=== PATIENT | male | born 1950 | race Caucasian/White ===

== ENCOUNTER 2016-04-04 11:24 | Emergency (ER) | payer MEDICARE, BC ==
[2016-04-04 11:32] VITALS: BP 162/102
[2016-04-04] MEDS ORDERED: DIPHTH,PERTUSS(ACELL),TET VAC 0.5 ML VIAL IM ONE (12:10)
--- NOTE | 2016-04-04 12:16 | ERNOTE ---
Lower Extremity HPI - Narrative Date of Service: 04/04/16 - General Lower Extremities Pain: 1st toe: right Time Seen by Provider: 04/04/16 11:53 Source: patient Exam Limitations: no limitations - Immun/Allergies/Home Medications Immunizations: IMMUNIZATION HX History of Influenza Vaccine Yes Hx Pneumococcal Vaccination Yes Allergies/Adverse Reactions: Allergies Allergy/AdvReac Type Severity Reaction Status Date / Time ciprofloxacin [From Cipro] Allergy Mild Hives Verified 04/04/16 11:32 ciprofloxacin HCl Allergy Mild Hives Verified 04/04/16 11:32 [From Cipro] hydrocodone bitartrate Allergy Mild Hives Verified 04/04/16 11:32 [From Vicodin] oxycodone [Oxycodone] AdvReac Mild Vomiting Verified 04/04/16 11:32 Home Medications: HOME MEDICATIONS Cetirizine HCl [Zyrtec] 10 mg PO DAILY PRN 11/22/13 [Last Taken 03/03/15] Furosemide [Lasix] 40 mg PO DAILY 11/22/13 [Last Taken 03/03/15] Gabapentin [Neurontin] 600 mg PO TID 11/22/13 [Last Taken 03/03/15] Irbesartan [Avapro] 300 mg PO DAILY 11/22/13 [Last Taken 03/03/15] Omeprazole [Prilosec] 20 mg PO DAILY 11/22/13 [Last Taken 03/03/15] Potassium Chloride [Klor-Con 10] 10 meq PO DAILY 11/22/13 [Last Taken 03/03/15] Montelukast Sodium [Singulair] 10 mg PO DAILY 01/20/15 [Last Taken 03/03/15] Aspirin 81 mg PO DAILY 04/04/16 [Last Taken Unknown] Budesonide/Formoterol Fumarate [Symbicort 160-4.5 Mcg Inhaler] 2 puff IH BID [Last Taken Unknown] Cholecalciferol (Vitamin D3) [Vitamin D3] 5,000 unit PO DAILY 04/04/16 [Last Taken Unknown] Meloxicam [Mobic] 15 mg PO DAILY 04/04/16 [Last Taken Unknown] Verapamil HCl [Verapamil ER] 240 mg PO DAILY 04/04/16 [Last Taken Unknown] - History of Present Illness Narrative: Pt. comes in with c/o R great toe nail being tore off of his toe while moving furniture an hour ago. Pt. denies any pain or injury to the toe itself just the nail. Pt. denies wearing shoes at the time of incident but states that he had a small amount of blood that stopped prior to arrival. Review of Systems - Review of Systems Constitutional: Present: no symptoms reported. Absent: recent illness, fever, chills, weakness, fatigue, malaise EYE: Present: no symptoms reported ENT: Present: no symptoms reported Respiratory: Present: no symptoms reported. Absent: shortness of breath, cough , wheezing Cardiology: Present: no symptoms reported. Absent: chest pain, palpitations, edema Genitourinary: Present: no symptoms reported Musculoskeletal: Absent: back pain, joint pain Skin: Present: change in hair/nails - nail great toe tore off Neurological: Present: no symptoms reported. Absent: headache, dizziness/light- headedness, numbness, tingling All Other Systems: All systems neg except as marked - Patient's Past Medical History Patient History - Medical: Arthritis, GERD, Obesity, Osteoarthritis Patient History - Cardiac/Respiratory: Asthma, Hypertension Patient History - Cancer: No Hx of Cancer Patient History - Surgical Procedures: Total Knee Replacement, Other - Family History Mother Family History - Medical: , Diabetes Type 2 Family History - Cardiac/Respiratory: No pertinent hx Father Family History - Medical: Family History - Cardiac/Respiratory: Coronary Heart Disease, Myocardial Infarction Brother Family History - Medical: Diabetes Type 2 Family History - Cardiac/Respiratory: No pertinent hx Sister Family History - Medical: Diabetes Type 2 Family History - Cardiac/Respiratory: No pertinent hx - Social History Living Situations: spouse Smoking Status: Never smoker Have you smoked in the past 12 months: No Do you dip or chew tobacco: No Alcohol Use: occasionally Drug Use: none Physical Exam - Physical Exam General Appearance: Present: wd/wn, alert, no apparent distress Eye Exam: Normal inspection: bilateral, PERRL: bilateral, EOMI: bilateral Ears, Nose, Throat: Present: normal ENT inspection, hearing grossly normal, normal pharynx Neck: Present: normal inspection, nontender. Absent: lymphadenopathy (R), lymphadenopathy (L) Respiratory: Present: no respiratory distress, normal breath sounds, no accessory muscle use, chest nontender, lungs clear Cardiovascular/Chest: Present: regular rate, rhythm, no murmur, normal peripheral pulses Gastrointestinal/Abdominal: Present: normal bowel sounds, nontender, nondistended, soft, no organomegaly Back Exam: Present: normal inspection, normal range of motion, no CVA tenderness , no vertebral tenderness Extremity Exam: Present: no edema, normal range of motion, other - tenderness with lifting of the nail no bony tenderness granulation tissue nose to nail bed. base of nail still attached Neurological Exam: Present: alert, oriented, normal mood/affect, no motor/ sensory deficits, explosive technician II-XII nml as tested, normal cerebellar test Skin Exam: Present: normal color, warm/dry. Absent: pallor, skin rash ED Progress - Vital Signs Patient's Vital Signs:: I have reviewed the patient's vital signs. Vital Signs: Vital Signs 04/04/16 11:28 Temperature 36.3 C L Pulse Rate 73 Respiratory 14 Rate Blood Pressure 162/102 O2 Sat by Pulse 95 Oximetry - Progress/Reassessment Chief Complaint: Foot Injury/Pain Departure Clinical Impression: Nail avulsion of toe Qualifiers: Encounter type: initial encounter Qualified Code(s): S91.209A - Unspecified open wound of unspecified toe(s) with damage to nail, initial encounter - Departure Disposition: Home self-care Condition: Good Instructions: Nail Avulsion Additional Instructions: Please follow up with entry level mechanical engineer in 7-10 days Referrals: Tyshawn Arteaga MD [Primary Care Provider] - Savannah Rai DPM [Staff Physician] -
== END 2016-04-04 12:30 | disposition home or self-care (01) ==
LOC: ER 11:24
DX: S91.201A Unspecified open wound of right great toe with damage to nail, initial encounter (principal); W22.8XXA Striking against or struck by other objects, initial encounter; Y93.89 Activity, other specified; Z96.659 Presence of unspecified artificial knee joint; K21.9 Gastro-esophageal reflux disease without esophagitis; I10 Essential (primary) hypertension

== ENCOUNTER 2016-12-11 10:15 | Inpatient (IN) | payer MEDICARE, BC ==
--- NOTE | 2016-12-11 11:06 | ERNOTE ---
Dyspnea - Date Date of Service: 12/11/16 - General Presenting Symptoms: shortness of breath Time Seen by Provider: 12/11/16 10:40 Source: patient Exam Limitations: no limitations - Immun/Allergies/Home Medications Immunizations: IMMUNIZATION HX Immunizations Up to Date Yes History of Influenza Vaccine Yes Hx Pneumococcal Vaccination Yes Allergies/Adverse Reactions: Allergies ciprofloxacin [From Cipro] Allergy (Mild, Verified 12/11/16 10:30) Hives ciprofloxacin HCl [From Cipro] Allergy (Mild, Verified 12/11/16 10:30) Hives hydrocodone bitartrate [From Vicodin] Allergy (Mild, Verified 12/11/16 10:30) Hives oxycodone [Oxycodone] Adverse Reaction (Mild, Verified 12/11/16 10:30) Vomiting Home Medications: HOME MEDICATIONS Cetirizine HCl [Zyrtec] 10 mg PO DAILY PRN 11/22/13 [Last Taken 03/03/15] Furosemide [Lasix] 40 mg PO DAILY 11/22/13 [Last Taken 03/03/15] Gabapentin [Neurontin] 600 mg PO TID 11/22/13 [Last Taken 03/03/15] Irbesartan [Avapro] 300 mg PO DAILY 11/22/13 [Last Taken 03/03/15] Potassium Chloride [Klor-Con 10] 10 meq PO DAILY 11/22/13 [Last Taken 03/03/15] Montelukast Sodium [Singulair] 10 mg PO DAILY 01/20/15 [Last Taken 03/03/15] Aspirin 81 mg PO DAILY 04/04/16 [Last Taken Unknown] Budesonide/Formoterol Fumarate [Symbicort 160-4.5 Mcg Inhaler] 2 puff IH BID [Last Taken Unknown] Cholecalciferol (Vitamin D3) [Vitamin D3] 5,000 unit PO DAILY 04/04/16 [Last Taken Unknown] Meloxicam [Mobic] 15 mg PO DAILY 04/04/16 [Last Taken Unknown] Verapamil HCl [Verapamil ER] 240 mg PO DAILY 04/04/16 [Last Taken Unknown] Arformoterol Tartrate [Brovana] 15 mcg IH BID 12/11/16 [Last Taken Unknown] Sulfamethoxazole/Trimethoprim [Bactrim 400-80 mg Tablet] 1 each PO DAILY [Last Taken Unknown] - History of Present Illness Narrative: pt had a urinary procedure on 11/22/16. He has had intermittent sweats and this am he had shaking chills per . He has a dry cough and a h/o asthma. He is complaining of dyspnea although he has no wheezes, extra sounds, no decreased breath sounds Date (Duration): 12/11/16 Time (Timing): 09:40 Severity: moderate Initiating event: Reports: upper resp illness Frequency of episodes: Reports: other - one prior episode of sepsis Modifying Factors - (Improves): Reports: activity, nothing Modifying Factors (Worsens): Reports: activity, nothing Associated Symptoms-Dyspnea: Reports: denies symptoms Review of Systems - Review of Systems Constitutional: Present: no symptoms reported EYE: Present: no symptoms reported ENT: Present: no symptoms reported Respiratory: Present: no symptoms reported Cardiology: Present: no symptoms reported Gastrointestinal/Abdominal: Present: no symptoms reported, constipation Genitourinary: Present: no symptoms reported Musculoskeletal: Present: no symptoms reported Skin: Present: no symptoms reported Neurological: Present: no symptoms reported Endocrine: Present: no symptoms reported Hematologic/Lymphatic: Present: no symptoms reported Psych: Present: no symptoms reported All Other Systems: All systems neg except as marked - Patient's Past Medical History Patient History - Medical: Arthritis, GERD, Obesity, Osteoarthritis Patient History - Cardiac/Respiratory: Asthma Patient History - Cancer: No Hx of Cancer Patient History - Surgical Procedures: Total Knee Replacement, Other Patient History - Other: None - Family History Mother Family History - Medical: , Diabetes Type 2 Family History - Cardiac/Respiratory: No pertinent hx Father Family History - Medical: Family History - Cardiac/Respiratory: Coronary Heart Disease, Myocardial Infarction Brother Family History - Medical: Diabetes Type 2 Family History - Cardiac/Respiratory: No pertinent hx Sister Family History - Medical: Diabetes Type 2 Family History - Cardiac/Respiratory: No pertinent hx - Social History Living Situations: spouse Abuse History: No History of abuse Psych History: No pertinent hx Smoking Status: Never smoker Have you smoked in the past 12 months: No Do you dip or chew tobacco: No Alcohol Use: occasionally Drug Use: none - Immunizations Immunizations Up to Date: Yes Hx Pneumococcal Vaccination: Yes History of Influenza Vaccine: Yes Physical Exam - Physical Exam General Appearance: Present: alert, no apparent distress Head Exam: Present: normal inspection Eye Exam: Normal inspection: bilateral Ears, Nose, Throat: Present: normal ENT inspection Neck: Present: normal inspection, nontender Respiratory: Present: no respiratory distress, normal breath sounds. Absent: rhonchi Cardiovascular/Chest: Present: regular rate, rhythm, no murmur Gastrointestinal/Abdominal: Present: normal bowel sounds, nontender Male Genitals Exam: Present: normal genitalia Back Exam: Present: normal inspection Extremity Exam: Present: normal inspection Skin Exam: Present: normal color Lymphatic Exam: Present: no adenopathy ED Progress - Results and Orders Patient's Lab Results:: I have reviewed the patient's lab results. - Vital Signs Patient's Vital Signs:: I have reviewed the patient's vital signs. Vital Signs: Vital Signs 12/11/16 12/11/16 10:25 10:46 Temperature 37.5 C 37.5 C Pulse Rate 93 90 Respiratory 14 11 L Rate Blood Pressure 140/80 128/57 O2 Sat by Pulse 98 99 Oximetry - CT/Ultrasound CT/Ultrasound Narrative: Pt had CT chest with contrast that was negative for PE, mass or infiltrate. Ct abdomen/pelvis: no internal organ injury. Possible pyelonephritis, no obstruction or stone. - Progress/Reassessment Chief Complaint: Dyspnea Plan - Plan Plan: spoke with Jessica COUCH/ Dr. Rincon who requested that urology be contacted. Spoke with Dr. De Oliveira who requested IV antibiotics and a catheter placement. Contacted hospitalist who agreed to admit the pt. Orders placed for admission Departure Clinical Impression: Pyelonephritis, acute - Departure Disposition: [facility] Condition: Good
[2016-12-11 11:19] LABS: Hematocrit 37.5 % (42.0-52.0); Hemoglobin 12.6 gm/dL (13.5-18.0); Mean Cell Volume 86.4 fl (78-100); Mean Corpuscular Hgb Conc 33.6 g/dl (32-36); Mean Platelet Volume 9.5 fl (6.0-9.5); Neutrophil # 16.2 K/mm3 (1.3-6.0); Neutrophil % 84.6 % (42-75.0); Platelet Count 406 K/mm3 (150-450); Red Blood Count 4.34 M/mm3 (4.7-6.0); White Blood Count 19.2 K/mm3 (4.0-10.5)
[2016-12-11 11:20] LABS: Total Cells Counted 100
[2016-12-11 11:37] LABS: Albumin * 3.1 gm/dl (3.4-5.0); Anion Gap 15.6 mmol/L (6.8-13.8); BUN/Creatinine Ratio 19.5 (9.0-21.6); Bilirubin, Total 0.7 mg/dL (0.0-1.1); Ca. Corrected For Albumin 8.9 mg/dL (8.4-10.2); Calcium * 8.5 mg/dL (7.9-10.9); Carbon Dioxide 22.9 mmol/L (24-32.6); Potassium 4.5 mmol/L (3.4-4.6); Total Protein 7.6 gm/dL (6.2-8.2)
[2016-12-11 11:48] LABS: Band 1 % (0-2.0); Lymphocyte 7 % (20-51); Monocyte 9 % (0-9); Neutrophil 83 % (42-75); Neutrophil # 15.9 K/mm3 (1.3-6.0); Platelet Estimate Normal (NORMAL); RBC Morphology Normal (NORMAL)
[2016-12-11 11:59] LABS: Urine Appearance Clear; Urine Bilirubin Negative (NEGATIVE); Urine Color Yellow
[2016-12-11 12:00] LABS: Urine Blood 5 /ul (NEGATIVE); Urine Ketone Negative (NEGATIVE); Urine Nitrite Negative (NEGATIVE); Urine Protein Negative (NEGATIVE); Urine Urobilinogen Normal (NORMAL); Urine pH 5.5 pH (5.0-7.0)
[2016-12-11 12:02] LABS: Urine Bacteria None Seen; Urine RBC 0-5 /hpf (0-5); Urine WBC 0-5 /hpf (0-5)
[2016-12-11] MEDS: ENOXAPARIN SODIUM 40 MG/0.4 ML SYRG SC SCH (16:27)
--- NOTE | 2016-12-11 16:27 | HP ---
<Anahi Galvan - Last Filed: 12/11/16 17:04> Chief Complaint - Chief Complaint Date of Service: 12/11/16 Time of Service: 16:27 Chief Complaint: dyspnea, night sweats, chills. History of Present Illness: Rik is a 66 year old male patient of Dr. Fontanez with a PMH of asthma, asthma , GERD, enlarged prostate with LUTS, morbid obesity, SHEEBA on CPAP, postinfective bulbous urethral stricture and Restrictive lung disease who presented to the ER with c/o dyspnea, night sweats and chills. Patient had a Electro Uroflowmetry complex, irrigation of bladder and fill and pull with Dr. Thomas on . ER eval revealed cbc significant for wbc 19.2 with 84.6 neutrophils, h/h 12.6/37.5. d-dimer 0.98. BUN/Cr 25/1.28, lactic acid 1.4. CT of the chest negative for PE. CT of abdomen/pelvis showed cystitis and pyelonephritis. previously on bactrim outpatient. Dr. farley notified of admission and recommend iv rocephin and elliott catheter. Last echo 05/16/13 show ef 65-70% with borderline LVH, RV mildly dilated, diastolic dysfunction and trace TR. Patient to be admitted for pyelonephritis and dyspnea. - Patient's Past Medical History Patient History - Medical: Arthritis, GERD, Obesity, Osteoarthritis Patient History - Cardiac/Respiratory: Asthma, CHF - chronic diastolic Patient History - Cancer: No Hx of Cancer Patient History - Surgical Procedures: Appendectomy, Colonoscopy, Total Knee Replacement, Other, Urology Patient History - Other: None - Family History Mother Family History - Medical: , Diabetes Type 2 Family History - Cardiac/Respiratory: No pertinent hx Family History - Cancer: No pertinent family hx Father Family History - Medical: Family History - Cardiac/Respiratory: Coronary Heart Disease, Myocardial Infarction Family History - Cancer: No pertinent family hx Brother Family History - Medical: Diabetes Type 2 Family History - Cardiac/Respiratory: No pertinent hx Family History - Cancer: No pertinent family hx Sister Family History - Medical: Diabetes Type 2 Family History - Cardiac/Respiratory: No pertinent hx Family History - Cancer: No pertinent family hx - Social History Living Situations: spouse Abuse History: No History of abuse Psych History: No pertinent hx Smoking Status: Never smoker Have you smoked in the past 12 months: No Do you dip or chew tobacco: No Alcohol Use: occasionally Drug Use: none - Immunizations Immunizations Up to Date: Yes Hx Pneumococcal Vaccination: Yes History of Influenza Vaccine: Yes Review Of Systems (GEN) - Review of Systems Generalized/Overall Review: Present: Chills, Diaphoresis. Absent: Fever EENTM: Present: No Symptoms Reported Respiratory: Present: Shortness of Breath Cardiac: Present: No Symptoms Reported Abdominal: Present: No Symptoms Reported Genitourinary: Present: No Symptoms Reported Musculoskeletal: Present: No Symptoms Reported Neurological: Present: No Symptoms Reported Skin: Present: No Symptoms Reported Endocrine: Present: No Symptoms Reported Misc: All systems neg except as marked Immunizations: IMMUNIZATION HX Immunizations Up to Date Yes History of Influenza Vaccine Yes Hx Pneumococcal Vaccination Yes Allergies/Adverse Reactions: Allergies Allergy/AdvReac Type Severity Reaction Status Date / Time ciprofloxacin [From Cipro] Allergy Mild Hives Verified 12/11/16 16:14 ciprofloxacin HCl Allergy Mild Hives Verified 12/11/16 16:14 [From Cipro] hydrocodone bitartrate Allergy Mild Hives Verified 12/11/16 16:14 [From Vicodin] oxycodone [Oxycodone] AdvReac Mild Vomiting Verified 12/11/16 16:14 Home Medications: HOME MEDICATIONS Cetirizine HCl [Zyrtec] 10 mg PO DAILY PRN 11/22/13 [Last Taken 03/03/15] Furosemide [Lasix] 40 mg PO DAILY 11/22/13 [Last Taken 03/03/15] Gabapentin [Neurontin] 600 mg PO TID 11/22/13 [Last Taken 03/03/15] Irbesartan [Avapro] 300 mg PO DAILY 11/22/13 [Last Taken 03/03/15] Potassium Chloride [Klor-Con 10] 10 meq PO DAILY 11/22/13 [Last Taken 03/03/15] Montelukast Sodium [Singulair] 10 mg PO DAILY 01/20/15 [Last Taken 03/03/15] Aspirin 81 mg PO DAILY 04/04/16 [Last Taken Unknown] Cholecalciferol (Vitamin D3) [Vitamin D3] 5,000 unit PO DAILY 04/04/16 [Last Taken Unknown] Meloxicam [Mobic] 15 mg PO DAILY 04/04/16 [Last Taken Unknown] Verapamil HCl [Verapamil ER] 240 mg PO DAILY 04/04/16 [Last Taken Unknown] Arformoterol Tartrate [Brovana] 15 mcg IH BID 12/11/16 [Last Taken Unknown] Budesonide [Pulmicort Respules] 2 ml IH BID 12/11/16 [Last Taken Unknown] Sulfamethoxazole/Trimethoprim [Bactrim 400-80 mg Tablet] 1 each PO DAILY [Last Taken Unknown] Exam - Exam Vital Signs: Vital Signs - Last Taken Temp 37.1 C 12/11/16 15:32 Pulse 72 12/11/16 15:32 Resp 18 12/11/16 15:32 BP 120/65 12/11/16 15:32 Pulse Ox 96 12/11/16 15:32 Constitutional: Present: Alert, Oriented x3, Cooperative, No distress, Morbidly obese ENT Exam: Present: hearing grossly normal Eye Exam: bilateral eye: normal inspection Neck: Present: supple Back Exam: Present: no CVA tenderness Breasts: Present: Exam deferred Respiratory: Present: normal breath sounds, no respiratory distress, no accessory muscle use Cardiovascular/Chest: Present: normal peripheral pulses, regular rate, rhythm, no murmur Peripheral Pulses: carotid (R): 2+, carotid (L): 2+, dorsalis-pedis (R): 2+, dorsalis-pedis (L): 2+, radial (R): 2+, radial (L): 2+ Abdomen: Present: Normal bowel sounds, soft, nontender, obese. Absent: CVA tenderness /Rectal: Present: Exam deferred Extremity: Present: non-tender, lower extremity edema - 2+ pitting Skin Exam: Present: warm/dry, no cyanosis, pallor Diagnostic Studies: Laboratory Results WBC 19.2 K/mm3 (4.0-10.5) H 12/11/16 11:11 RBC 4.34 M/mm3 (4.7-6.0) L 12/11/16 11:11 Hgb 12.6 gm/dL (13.5-18.0) L 12/11/16 11:11 Hct 37.5 % (42.0-52.0) L 12/11/16 11:11 MCV 86.4 fl (78-100) 12/11/16 11:11 MCH 29.0 pg (27-31) 12/11/16 11:11 MCHC 33.6 g/dl (32-36) 12/11/16 11:11 RDW 13.0 % (11.5-14.0) 12/11/16 11:11 Plt Count 406 K/mm3 (150-450) 12/11/16 11:11 MPV 9.5 fl (6.0-9.5) 12/11/16 11:11 Immature Gran % (Auto) 0.50 % (0.001-0.429) H 12/11/16 11:11 Immature Gran # (Auto) 0.10 K/mm3 (0.000-0.0310) H 12/11/16 11:11 Neutrophils % 84.6 % (42-75.0) H 12/11/16 11:11 Neutrophils % (Manual) 83 % (42-75) H 12/11/16 11:11 Band Neuts % (Manual) 1 % (0-2.0) 12/11/16 11:11 Lymphocytes % 4.4 % (20-51) L 12/11/16 11:11 Lymphocytes % (Manual) 7 % (20-51) L 12/11/16 11:11 Monocytes % 9.3 % (0.0-9) H 12/11/16 11:11 Monocytes % (Manual) 9 % (0-9) 12/11/16 11:11 Eosinophils % 0.7 % (0.0-3.0) 12/11/16 11:11 Basophils % 0.5 % (0.0-1.0) 12/11/16 11:11 Nucleated RBC % 0.0 k/mm3 (0-1) 12/11/16 11:11 Neutrophils # 16.2 K/mm3 (1.3-6.0) H 12/11/16 11:11 Neutrophils # (Manual) 15.9 K/mm3 (1.3-6.0) H 12/11/16 11:11 Lymphocytes # 0.9 k/mm3 (1.5-3.5) L 12/11/16 11:11 Lymphocytes # (Manual) 1.3 k/mm3 (1.5-3.5) L 12/11/16 11:11 Monocytes # 1.8 k/mm3 (0.0-1.0) H 12/11/16 11:11 Monocytes # (Manual) 1.7 k/mm3 (0.0-1.0) H 12/11/16 11:11 Eosinophils # 0.1 k/mm3 (0.0-0.7) 12/11/16 11:11 Absolute Basophils 0.1 k/mm3 (0.0-0.1) 12/11/16 11:11 Platelet Estimate Normal (NORMAL) 12/11/16 11:11 RBC Morphology Normal (NORMAL) 12/11/16 11:11 D-Dimer 0.98 mg/L (0.19-0.49) H 12/11/16 11:11 Sodium 136 mmol/L (132-142) 12/11/16 11:11 Plasma Sodium 136 mmol/L (130-142) 12/11/16 11:11 Potassium 4.5 mmol/L (3.4-4.6) 12/11/16 11:11 Chloride 102 mmol/L (97-106) 12/11/16 11:11 Carbon Dioxide 22.9 mmol/L (24-32.6) L 12/11/16 11:11 Anion Gap 15.6 mmol/L (6.8-13.8) H 12/11/16 11:11 BUN 25 mg/dL (6-23) H 12/11/16 11:11 Creatinine 1.28 mg/dL (0.4-1.4) 12/11/16 11:11 Est GFR (Non-Af Amer) 60 mL/min (60-130) D 12/11/16 11:11 BUN/Creatinine Ratio 19.5 (9.0-21.6) 12/11/16 11:11 Random Glucose 122 mg/dL (70-110) H 12/11/16 11:11 Lactic Acid, Venous 1.4 mmol/L (0.4-1.9) 12/11/16 11:45 Calcium 8.5 mg/dL (7.9-10.9) 12/11/16 11:11 Calcium Adj for Albumin 8.9 mg/dL (8.4-10.2) 12/11/16 11:11 Total Bilirubin 0.7 mg/dL (0.0-1.1) 12/11/16 11:11 AST 20 U/L (0-48) 12/11/16 11:11 ALT 47 U/L (19-67) 12/11/16 11:11 Alkaline Phosphatase 55 U/L (50-170) 12/11/16 11:11 Total Protein 7.6 gm/dL (6.2-8.2) 12/11/16 11:11 Albumin 3.1 gm/dl (3.4-5.0) L 12/11/16 11:11 Urine Color Yellow 12/11/16 11:43 Urine Appearance Clear 12/11/16 11:43 Urine pH 5.5 pH (5.0-7.0) 12/11/16 11:43 Ur Specific [place] 1.010 SP.GR. (1.005-1.030) 12/11/16 11:43 Urine Protein Negative mg/dL (NEGATIVE) 12/11/16 11:43 Urine Glucose (UA) Negative mg/dL (NEGATIVE) 12/11/16 11:43 Urine Ketones Negative mg/dL (NEGATIVE) 12/11/16 11:43 Urine Blood 5 /ul (NEGATIVE) H 12/11/16 11:43 Urine Nitrate Negative (NEGATIVE) 12/11/16 11:43 Urine Bilirubin Negative mg/dl (NEGATIVE) 12/11/16 11:43 Urine Urobilinogen Normal EU/dl (NORMAL) 12/11/16 11:43 Ur Leukocyte Esterase Negative /ul (NEGATIVE) 12/11/16 11:43 Urine RBC 0-5 /hpf (0-5) 12/11/16 11:43 Urine WBC 0-5 /hpf (0-5) 12/11/16 11:43 Ur Epithelial Cells 0-5 /hpf (0-5) 12/11/16 11:43 Urine Bacteria None seen (NONE) 12/11/16 11:43 Urine Culture Comments No culture indicated 12/11/16 11:43 Assessment/Plan - Narrative Narrative: Rik is a 66 year old male who presented to the ER with c/o dyspnea, chills and night sweats. Pyelonephritis / leukocytosis - Rocephin 1 gm IV daily - Day #1 - NS at 100 ml / hr - send urine for culture - 2 blood cultures pending - WBC elevated at 19 upon admission - recheck labs in am. - No CVA tenderness Dyspnea - CTA of the chest neg for PE/pneumonia/pleural effusion - upon admission to floor, states he feels better with no intervention - ? anxiety ? GERD - pepcid iv to see if this help with symptoms SHEEBA - continue cpap while admitted Code status: Full code VTE: coronanox GI Proph: pepcid - Assessment/Plan (1) Dyspnea Problem: Acute QualifierTitle: Dyspnea type: unspecified Qualified Code(s): R06.00 - Dyspnea, unspecified (2) Morbid obesity with BMI of 45.0-49.9, adult Problem: Chronic (3) SHEEBA on CPAP Problem: Chronic (4) Restrictive lung disease Problem: Chronic (5) Enlarged prostate with lower urinary tract symptoms (LUTS) Problem: Chronic (6) Pyelonephritis, acute Problem: Acute (7) Leukocytosis Problem: Acute QualifierTitle: Qualified Code(s): D72.829 - Elevated white blood cell count, unspecified (8) Asthma Problem: Chronic QualifierTitle: Asthma severity: mild intermittent Asthma complication type: uncomplicated Qualified Code(s): J45.20 - Mild intermittent asthma, uncomplicated (9) GERD (gastroesophageal reflux disease) Problem: Chronic QualifierTitle: Esophagitis presence: esophagitis presence not specified Qualified Code(s): K21.9 - Gastro-esophageal reflux disease without esophagitis (10) Hypertension Problem: Chronic QualifierTitle: Hypertension type: essential hypertension Qualified Code( s): I10 - Essential (primary) hypertension <Jevon Butler - Last Filed: 12/12/16 07:22> History of Present Illness: The approach was discussed with Dr. Farley, the treating surgeon, and his plan was implemented. At the time of our exam, the patient was feeling better. I personally directed the care of our nurse practitioner hospitalist. Immunizations: IMMUNIZATION HX Immunizations Up to Date Yes History of Influenza Vaccine Yes Hx Pneumococcal Vaccination Yes Exam - Exam Vital Signs: Vital Signs - Last Taken Temp 37.9 C H 12/12/16 02:43 Pulse 57 L 12/12/16 04:45 Resp 18 12/12/16 04:45 BP 150/59 12/12/16 02:43 Pulse Ox 90 12/12/16 04:45 Diagnostic Studies: Laboratory Results WBC 19.2 K/mm3 (4.0-10.5) H 12/11/16 11:11 RBC 4.34 M/mm3 (4.7-6.0) L 12/11/16 11:11 Hgb 12.6 gm/dL (13.5-18.0) L 12/11/16 11:11 Hct 37.5 % (42.0-52.0) L 12/11/16 11:11 MCV 86.4 fl (78-100) 12/11/16 11:11 MCH 29.0 pg (27-31) 12/11/16 11:11 MCHC 33.6 g/dl (32-36) 12/11/16 11:11 RDW 13.0 % (11.5-14.0) 12/11/16 11:11 Plt Count 406 K/mm3 (150-450) 12/11/16 11:11 MPV 9.5 fl (6.0-9.5) 12/11/16 11:11 Immature Gran % (Auto) 0.50 % (0.001-0.429) H 12/11/16 11:11 Immature Gran # (Auto) 0.10 K/mm3 (0.000-0.0310) H 12/11/16 11:11 Neutrophils % 84.6 % (42-75.0) H 12/11/16 11:11 Neutrophils % (Manual) 83 % (42-75) H 12/11/16 11:11 Band Neuts % (Manual) 1 % (0-2.0) 12/11/16 11:11 Lymphocytes % 4.4 % (20-51) L 12/11/16 11:11 Lymphocytes % (Manual) 7 % (20-51) L 12/11/16 11:11 Monocytes % 9.3 % (0.0-9) H 12/11/16 11:11 Monocytes % (Manual) 9 % (0-9) 12/11/16 11:11 Eosinophils % 0.7 % (0.0-3.0) 12/11/16 11:11 Basophils % 0.5 % (0.0-1.0) 12/11/16 11:11 Nucleated RBC % 0.0 k/mm3 (0-1) 12/11/16 11:11 Neutrophils # 16.2 K/mm3 (1.3-6.0) H 12/11/16 11:11 Neutrophils # (Manual) 15.9 K/mm3 (1.3-6.0) H 12/11/16 11:11 Lymphocytes # 0.9 k/mm3 (1.5-3.5) L 12/11/16 11:11 Lymphocytes # (Manual) 1.3 k/mm3 (1.5-3.5) L 12/11/16 11:11 Monocytes # 1.8 k/mm3 (0.0-1.0) H 12/11/16 11:11 Monocytes # (Manual) 1.7 k/mm3 (0.0-1.0) H 12/11/16 11:11 Eosinophils # 0.1 k/mm3 (0.0-0.7) 12/11/16 11:11 Absolute Basophils 0.1 k/mm3 (0.0-0.1) 12/11/16 11:11 Platelet Estimate Normal (NORMAL) 12/11/16 11:11 RBC Morphology Normal (NORMAL) 12/11/16 11:11 D-Dimer 0.98 mg/L (0.19-0.49) H 12/11/16 11:11 Sodium 136 mmol/L (132-142) 12/11/16 11:11 Plasma Sodium 136 mmol/L (130-142) 12/11/16 11:11 Potassium 4.5 mmol/L (3.4-4.6) 12/11/16 11:11 Chloride 102 mmol/L (97-106) 12/11/16 11:11 Carbon Dioxide 22.9 mmol/L (24-32.6) L 12/11/16 11:11 Anion Gap 15.6 mmol/L (6.8-13.8) H 12/11/16 11:11 BUN 25 mg/dL (6-23) H 12/11/16 11:11 Creatinine 1.28 mg/dL (0.4-1.4) 12/11/16 11:11 Est GFR (Non-Af Amer) 60 mL/min (60-130) D 12/11/16 11:11 BUN/Creatinine Ratio 19.5 (9.0-21.6) 12/11/16 11:11 Random Glucose 122 mg/dL (70-110) H 12/11/16 11:11 Lactic Acid, Venous 1.4 mmol/L (0.4-1.9) 12/11/16 11:45 Calcium 8.5 mg/dL (7.9-10.9) 12/11/16 11:11 Calcium Adj for Albumin 8.9 mg/dL (8.4-10.2) 12/11/16 11:11 Total Bilirubin 0.7 mg/dL (0.0-1.1) 12/11/16 11:11 AST 20 U/L (0-48) 12/11/16 11:11 ALT 47 U/L (19-67) 12/11/16 11:11 Alkaline Phosphatase 55 U/L (50-170) 12/11/16 11:11 B-Natriuretic Peptide 53 pg/mL (5-350) 12/11/16 11:45 Total Protein 7.6 gm/dL (6.2-8.2) 12/11/16 11:11 Albumin 3.1 gm/dl (3.4-5.0) L 12/11/16 11:11 Procalcitonin 0.26 ng/mL (0.05-0.50) 12/11/16 11:45 Urine Color Yellow 12/11/16 11:43 Urine Appearance Clear 12/11/16 11:43 Urine pH 5.5 pH (5.0-7.0) 12/11/16 11:43 Ur Specific [place] 1.010 SP.GR. (1.005-1.030) 12/11/16 11:43 Urine Protein Negative mg/dL (NEGATIVE) 12/11/16 11:43 Urine Glucose (UA) Negative mg/dL (NEGATIVE) 12/11/16 11:43 Urine Ketones Negative mg/dL (NEGATIVE) 12/11/16 11:43 Urine Blood 5 /ul (NEGATIVE) H 12/11/16 11:43 Urine Nitrate Negative (NEGATIVE) 12/11/16 11:43 Urine Bilirubin Negative mg/dl (NEGATIVE) 12/11/16 11:43 Urine Urobilinogen Normal EU/dl (NORMAL) 12/11/16 11:43 Ur Leukocyte Esterase Negative /ul (NEGATIVE) 12/11/16 11:43 Urine RBC 0-5 /hpf (0-5) 12/11/16 11:43 Urine WBC 0-5 /hpf (0-5) 12/11/16 11:43 Ur Epithelial Cells 0-5 /hpf (0-5) 12/11/16 11:43 Urine Bacteria None seen (NONE) 12/11/16 11:43 Urine Culture Comments No culture indicated 12/11/16 11:43
[2016-12-11] MEDS ORDERED: LORazepam 2 MG/ML DISP.SYRIN IV ONE (17:00)
[2016-12-11] MEDS: NORMAL SALINE 1,000 ML IV PRN (17:32)
[2016-12-11] MEDS: FAMOTIDINE 20 MG in DEXTROSE 5 % IN WATER 100 ML IV SCH ×2 (17:45)
[2016-12-11] MEDS ORDERED: LORATADINE 10 MG TABLET PO PRN (19:00)
[2016-12-11] MEDS: GABAPENTIN 600 MG TABLET PO SCH (19:13)
[2016-12-11] MEDS: FORMOTEROL FUMARATE 20 MCG/2 ML VIAL IH SCH (19:23)
[2016-12-11] MEDS: BUDESONIDE 0.5 MG/2 ML VIAL.NEB IH SCH (19:24)
[2016-12-12] MEDS: ACETAMINOPHEN 325 MG TABLET PO PRN (02:25)
[2016-12-12] MEDS: FAMOTIDINE 20 MG in DEXTROSE 5 % IN WATER 100 ML IV SCH ×4 (04:15→17:13)
[2016-12-12] MEDS: NORMAL SALINE 1,000 ML IV PRN (07:31)
[2016-12-12] MEDS ORDERED: VANCOMYCIN HCL 1.25 GM in DEXTROSE 5 % IN WATER 250 ML IV ONE ×2 (08:18)
[2016-12-12 08:27] LABS: Hematocrit 36.5 % (42.0-52.0); Hemoglobin 12.1 gm/dL (13.5-18.0); Mean Cell Volume 88.2 fl (78-100); Mean Corpuscular Hemoglobin 29.2 pg (27-31); Mean Corpuscular Hgb Conc 33.2 g/dl (32-36); Mean Platelet Volume 9.3 fl (6.0-9.5); Neutrophil # 9.4 K/mm3 (1.3-6.0); Neutrophil % 70.7 % (42-75.0); Platelet Count 392 K/mm3 (150-450); Red Blood Count 4.14 M/mm3 (4.7-6.0); Red Cell Distribution Width 13.2 % (11.5-14.0); White Blood Count 13.2 K/mm3 (4.0-10.5)
[2016-12-12 08:35] LABS: Anion Gap 10.4 mmol/L (6.8-13.8); Calcium * 8.4 mg/dL (7.9-10.9); Carbon Dioxide 27.6 mmol/L (24-32.6); Estimated Creat Clear 51.6
--- NOTE | 2016-12-12 08:36 | PN ---
Subjective - Date and Time Seen Date: 12/12/16 Time: 08:33 Subjective Narrative: c/o night sweats and chills. no fevers. no cp,dyspnea. overall feeling better. Objective - Review of Systems Generalized/Overall Review: Reports: Chills, Diaphoresis, Fatigue. Denies: Fever EENTM: Reports: No Symptoms Reported Respiratory: Reports: No Symptoms Reported Cardiac: Reports: No Symptoms Reported Abdominal: Reports: No Symptoms Reported Genitourinary Symptoms: Reports: No Symptoms Reported Musculoskeletal Complaints: Reports: No Symptoms Reported Neurological: Reports: No Symptoms Reported Skin: Reports: No Symptoms Reported Endocrine: Reports: No Symptoms Reported Misc: All systems neg except as marked - Vitals Vitals: Last Vital Signs Temp 36.6 C 12/12/16 06:00 Pulse 52 L 12/12/16 06:00 Resp 18 12/12/16 06:00 BP 122/65 12/12/16 06:00 Pulse Ox 94 12/12/16 06:00 - Abnormal Lab Findings Abnormal Lab Findings: Abnormal Lab Results 12/12/16 Range/Units 08:22 WBC 13.2 H D (4.0-10.5) K/mm3 RBC 4.14 L (4.7-6.0) M/mm3 Hgb 12.1 L (13.5-18.0) gm/dL Hct 36.5 L (42.0-52.0) % Immature Gran % (Auto) 0.50 H (0.001-0.429) % Immature Gran # (Auto) 0.07 H (0.000-0.0310) K/mm3 Lymphocytes % 14.5 L (20-51) % Monocytes % 11.6 H (0.0-9) % Neutrophils # 9.4 H (1.3-6.0) K/mm3 Monocytes # 1.5 H (0.0-1.0) k/mm3 - Exam Constitutional: Present: Alert, Oriented x3, Cooperative, No distress, Morbidly obese ENT Exam: Present: hearing grossly normal Neck: Present: full range of motion, supple Breasts: Present: Exam deferred Respiratory: Present: normal breath sounds, no respiratory distress Cardiovascular/Chest: Present: normal peripheral pulses, regular rate, rhythm Abdomen: Present: soft, nontender, obese /Rectal: Present: Exam deferred Extremity: Present: non-tender, lower extremity edema - 2+ pitting Skin Exam: Present: warm/dry, no cyanosis, pallor Cauti Physician Documentation - Urinary Catheter Management Uretheral (Elliott) Urethral Indwelling: Yes Reason for Continuing Indwelling Catheter: Other - obstruction; per Dr. Haji recommendation. Date of Insertion: 12/11/16 Time of Insertion: 15:00 Assessment/Plan Plan Narrative: Rik is a 66 year old male who presented to the ER with c/o dyspnea, chills and night sweats. Pyelonephritis / leukocytosis - Rocephin 1 gm IV daily - Day #2 - NS at 100 ml / hr - send urine for culture - prelim culture growing gram negative bacilli - 2 blood cultures pending - WBC elevated at 19.2 upon admission - wbc this am (12/12/16) decreased to 13.2 - No CVA tenderness - Spoke with Dr. Haji (urology) - recommend continue with elliott catheter and cont antibiotic treatment Dyspnea - CTA of the chest neg for PE/pneumonia/pleural effusion - upon admission to floor, states he feels better with no intervention - ? anxiety ? GERD - protonix SHEEBA - continue cpap while admitted Code status: Full code VTE: lovenox GI Proph: pepcid - Problems/Diagnosis (1) Dyspnea Problem: Acute Qualifiers: Dyspnea type: unspecified Qualified Code(s): R06.00 - Dyspnea, unspecified (2) Morbid obesity with BMI of 45.0-49.9, adult Problem: Chronic (3) SHEEBA on CPAP Problem: Chronic (4) Restrictive lung disease Problem: Chronic (5) Enlarged prostate with lower urinary tract symptoms (LUTS) Problem: Chronic (6) Pyelonephritis, acute Problem: Acute (7) Leukocytosis Problem: Acute (8) Asthma Problem: Chronic Qualifiers: Asthma severity: mild intermittent Asthma complication type: uncomplicated Qualified Code(s): J45.20 - Mild intermittent asthma, uncomplicated (9) GERD (gastroesophageal reflux disease) Problem: Chronic Qualifiers: Esophagitis presence: esophagitis presence not specified Qualified Code(s) : K21.9 - Gastro-esophageal reflux disease without esophagitis (10) Hypertension Problem: Chronic Qualifiers: Hypertension type: essential hypertension Qualified Code(s): I10 - Essential (primary) hypertension
[2016-12-12] MEDS: FORMOTEROL FUMARATE 20 MCG/2 ML VIAL IH SCH ×2 (08:43→18:14)
[2016-12-12] MEDS: BUDESONIDE 0.5 MG/2 ML VIAL.NEB IH SCH ×2 (08:45→18:15)
[2016-12-12] MEDS ORDERED: MONTELUKAST SODIUM 10 MG TABLET PO SCH (09:00)
[2016-12-12] MEDS ORDERED: FLU VACC QS2017-18(6MOS UP)/PF 60 MCG/0.5 ML SYRINGE IM ONE (09:00)
[2016-12-12] MEDS: LOSARTAN POTASSIUM 50 MG TABLET PO SCH (09:09)
[2016-12-12] MEDS: VERAPAMIL HCL 240 MG TABLET.SA PO SCH (09:09)
[2016-12-12] MEDS: SACCHAROMYCES BOULARDII 250 MG CAPSULE PO SCH ×2 (09:09→20:55)
[2016-12-12] MEDS: ASPIRIN 81 MG TAB.CHEW PO SCH (09:09)
[2016-12-12] MEDS: POTASSIUM CHLORIDE 10 MEQ TABLET.SA PO SCH (09:09)
[2016-12-12] MEDS: GABAPENTIN 600 MG TABLET PO SCH ×3 (09:10→17:10)
[2016-12-12] MEDS: CHOLECALCIFEROL 5,000 UNIT TABLET PO SCH (09:10)
[2016-12-12] MEDS: MELOXICAM 15 MG TABLET PO SCH (09:10)
[2016-12-12] MEDS: FUROSEMIDE 40 MG TABLET PO SCH (09:10)
[2016-12-12] MEDS: ENOXAPARIN SODIUM 40 MG/0.4 ML SYRG SC SCH (15:36)
[2016-12-12] MEDS: MONTELUKAST SODIUM 10 MG TABLET PO SCH (20:56)
[2016-12-13] MEDS: NORMAL SALINE 1,000 ML IV PRN ×2 (00:41→13:16)
[2016-12-13] MEDS: FAMOTIDINE 20 MG in DEXTROSE 5 % IN WATER 100 ML IV SCH ×4 (04:13→16:55)
[2016-12-13 05:56] LABS: Hematocrit 35.3 % (42.0-52.0); Hemoglobin 11.7 gm/dL (13.5-18.0); Mean Cell Volume 88.5 fl (78-100); Mean Corpuscular Hemoglobin 29.3 pg (27-31); Mean Corpuscular Hgb Conc 33.1 g/dl (32-36); Mean Platelet Volume 10.1 fl (6.0-9.5); Platelet Count 394 K/mm3 (150-450); Red Blood Count 3.99 M/mm3 (4.7-6.0); White Blood Count 10.9 K/mm3 (4.0-10.5)
[2016-12-13 06:04] LABS: Total Cells Counted 100
[2016-12-13 06:09] LABS: Anion Gap 13.8 mmol/L (6.8-13.8); Calcium * 8.3 mg/dL (7.9-10.9); Carbon Dioxide 24.4 mmol/L (24-32.6); Estimated Creat Clear 60.7; Potassium 4.2 mmol/L (3.4-4.6)
[2016-12-13] MEDS: FORMOTEROL FUMARATE 20 MCG/2 ML VIAL IH SCH ×2 (06:16→18:16)
[2016-12-13] MEDS: BUDESONIDE 0.5 MG/2 ML VIAL.NEB IH SCH ×2 (06:16→18:16)
[2016-12-13 06:27] LABS: BUN/Creatinine Ratio 14.8 (9.0-21.6)
[2016-12-13 06:32] LABS: Eosinophil 2 % (0-3); Immature Granulocyte 1 (0-1); Lymphocyte 22 % (20-51); Monocyte 11 % (0-9); Neutrophil 64 % (42-75)
[2016-12-13 06:33] LABS: Platelet Estimate Normal (NORMAL); RBC Morphology Normal (NORMAL)
[2016-12-13] MEDS: ASPIRIN 81 MG TAB.CHEW PO SCH (09:06)
[2016-12-13] MEDS: LOSARTAN POTASSIUM 50 MG TABLET PO SCH (09:07)
[2016-12-13] MEDS: GABAPENTIN 600 MG TABLET PO SCH ×3 (09:07→16:55)
[2016-12-13] MEDS: SACCHAROMYCES BOULARDII 250 MG CAPSULE PO SCH ×2 (09:07→22:22)
[2016-12-13] MEDS: POTASSIUM CHLORIDE 10 MEQ TABLET.SA PO SCH (09:07)
[2016-12-13] MEDS: MELOXICAM 15 MG TABLET PO SCH (09:07)
[2016-12-13] MEDS: VERAPAMIL HCL 240 MG TABLET.SA PO SCH (09:07)
[2016-12-13] MEDS: FUROSEMIDE 40 MG TABLET PO SCH (09:07)
[2016-12-13] MEDS: CHOLECALCIFEROL 5,000 UNIT TABLET PO SCH (09:08)
--- NOTE | 2016-12-13 10:43 | PN ---
Subjective - Date and Time Seen Date: 12/13/16 Time: 10:38 Subjective Narrative: Patient is afebrile today. Tmax yesterday was 37.9. Objective - Review of Systems Generalized/Overall Review: Reports: Fever. Denies: Chills EENTM: Reports: No Symptoms Reported Respiratory: Denies: Cough, Shortness of Breath Cardiac: Denies: Chest Pain, Palpitations Abdominal: Denies: Nausea, Vomiting Genitourinary Symptoms: Denies: Urgency, Frequency - Vitals Vitals: Last Vital Signs Temp 36.8 C 12/13/16 08:39 Pulse 65 12/13/16 09:07 Resp 16 12/13/16 08:39 BP 138/63 12/13/16 09:07 Pulse Ox 96 12/13/16 08:39 - Abnormal Lab Findings Abnormal Lab Findings: Abnormal Lab Results 12/13/16 12/13/16 Range/Units 05:10 05:10 WBC 10.9 H (4.0-10.5) K/mm3 RBC 3.99 L (4.7-6.0) M/mm3 Hgb 11.7 L (13.5-18.0) gm/dL Hct 35.3 L (42.0-52.0) % MPV 10.1 H (6.0-9.5) fl Monocytes % (Manual) 11 H (0-9) % Neutrophils # (Manual) 7.0 H (1.3-6.0) K/mm3 Monocytes # (Manual) 1.2 H (0.0-1.0) k/mm3 Chloride 108 H (97-106) mmol/L Random Glucose 119 H (70-110) mg/dL - Exam Constitutional: Present: Alert, Oriented x3, Cooperative ENT Exam: Present: hearing grossly normal Neck: Present: supple Breasts: Present: Exam deferred Respiratory: Present: normal breath sounds, No rales, No wheezing Cardiovascular/Chest: Present: regular rate, rhythm, no JVD, no murmur Abdomen: Present: Normal bowel sounds, soft, nontender, obese Extremity: Present: no pedal edema, no calf tenderness Cauti Physician Documentation - Urinary Catheter Management Uretheral (Starr) Urethral Indwelling: Yes Date of Insertion: 12/11/16 Time of Insertion: 15:00 Assessment/Plan - Problems/Diagnosis (1) Pyelonephritis, acute Problem: Acute Narrative: UCS showing E.Coli. Patient is allergic to Cipro and likely levaquin. The patient says that Dr. Miles will be seeing him tomorrow in the hospital. Will ikely idschgarge him tomorrow with oral Cefuroxime per sensitivity. (2) Enlarged prostate with lower urinary tract symptoms (LUTS) Problem: Chronic (3) Morbid obesity with BMI of 45.0-49.9, adult Problem: Chronic (4) SHEEBA on CPAP Problem: Chronic (5) Leukocytosis Problem: Acute Narrative: down to 10.9. (6) Asthma Problem: Chronic Qualifiers: Asthma severity: mild intermittent Asthma complication type: uncomplicated Qualified Code(s): J45.20 - Mild intermittent asthma, uncomplicated (7) GERD (gastroesophageal reflux disease) Problem: Chronic Qualifiers: Esophagitis presence: esophagitis presence not specified Qualified Code(s) : K21.9 - Gastro-esophageal reflux disease without esophagitis (8) Hypertension Problem: Chronic Qualifiers: Hypertension type: essential hypertension Qualified Code(s): I10 - Essential (primary) hypertension
[2016-12-13] MEDS: ACETAMINOPHEN 325 MG TABLET PO PRN (13:13)
[2016-12-13] MEDS: ENOXAPARIN SODIUM 40 MG/0.4 ML SYRG SC SCH (16:55)
[2016-12-13] MEDS: MONTELUKAST SODIUM 10 MG TABLET PO SCH (22:22)
[2016-12-14] MEDS: FAMOTIDINE 20 MG in DEXTROSE 5 % IN WATER 100 ML IV SCH ×2 (03:13)
[2016-12-14] MEDS: NORMAL SALINE 1,000 ML IV PRN (04:46)
[2016-12-14] MEDS: FORMOTEROL FUMARATE 20 MCG/2 ML VIAL IH SCH (06:15)
[2016-12-14] MEDS: BUDESONIDE 0.5 MG/2 ML VIAL.NEB IH SCH (06:15)
[2016-12-14 07:50] LABS: Hematocrit 35.8 % (42.0-52.0); Hemoglobin 11.9 gm/dL (13.5-18.0); Mean Cell Volume 87.5 fl (78-100); Mean Corpuscular Hemoglobin 29.1 pg (27-31); Mean Corpuscular Hgb Conc 33.2 g/dl (32-36); Mean Platelet Volume 9.5 fl (6.0-9.5); Neutrophil # 7.7 K/mm3 (1.3-6.0); Neutrophil % 65.8 % (42-75.0); Platelet Count 393 K/mm3 (150-450); Red Blood Count 4.09 M/mm3 (4.7-6.0); Red Cell Distribution Width 12.9 % (11.5-14.0); White Blood Count 11.7 K/mm3 (4.0-10.5)
[2016-12-14 08:06] LABS: Anion Gap 12.9 mmol/L (6.8-13.8); BUN/Creatinine Ratio 15.3 (9.0-21.6); Calcium * 8.2 mg/dL (7.9-10.9); Carbon Dioxide 25.1 mmol/L (24-32.6); Estimated Creat Clear 66.9
[2016-12-14] MEDS: ASPIRIN 81 MG TAB.CHEW PO SCH (08:30)
[2016-12-14] MEDS: FUROSEMIDE 40 MG TABLET PO SCH (08:30)
[2016-12-14] MEDS: LOSARTAN POTASSIUM 50 MG TABLET PO SCH (08:30)
[2016-12-14] MEDS: POTASSIUM CHLORIDE 10 MEQ TABLET.SA PO SCH (08:30)
[2016-12-14] MEDS: SACCHAROMYCES BOULARDII 250 MG CAPSULE PO SCH (08:30)
[2016-12-14] MEDS: VERAPAMIL HCL 240 MG TABLET.SA PO SCH (08:30)
[2016-12-14] MEDS: MELOXICAM 15 MG TABLET PO SCH (08:31)
[2016-12-14] MEDS: CHOLECALCIFEROL 5,000 UNIT TABLET PO SCH (08:31)
[2016-12-14] MEDS: GABAPENTIN 600 MG TABLET PO SCH ×2 (08:31→13:15)
[2016-12-14] MEDS ORDERED: CEFUROXIME AXETIL 500 MG TABLET PO SCH (10:00)
--- NOTE | 2016-12-14 10:23 | PN ---
Misael Note - Interim Narrative: 12/14/16 10:22 Will discharge patient this afternoon after he sees Dr. Miles. Will leave it up to him if his elliott is coming out. He had a recent proceedure for a urethral stricture. His UCS is grwoing E. Coli snesitive to fluroquinolones but he is allergic to them . Will likely discharge him on Cefuroxime 500 mg PO BID .
[2016-12-14] MEDS ORDERED: LEVOFLOXACIN 500 MG TABLET PO ONE (10:38)
--- NOTE | 2016-12-14 12:51 | DS ---
(1) Pyelonephritis, acute Problem: Acute (2) Enlarged prostate with lower urinary tract symptoms (LUTS) Problem: Chronic (3) Morbid obesity with BMI of 45.0-49.9, adult Problem: Chronic (4) SHEEBA on CPAP Problem: Chronic (5) Leukocytosis Problem: Acute (6) Asthma Problem: Chronic Qualifiers: Asthma severity: mild intermittent Asthma complication type: uncomplicated Qualified Code(s): J45.20 - Mild intermittent asthma, uncomplicated (7) GERD (gastroesophageal reflux disease) Problem: Chronic Qualifiers: Esophagitis presence: esophagitis presence not specified Qualified Code(s) : K21.9 - Gastro-esophageal reflux disease without esophagitis (8) Hypertension Problem: Chronic Qualifiers: Hypertension type: essential hypertension Qualified Code(s): I10 - Essential (primary) hypertension Description of Stay: Rik Lamas, is a 66 year old white male with a PMH of asthma, asthma, GERD , enlarged prostate with LUTS, morbid obesity, SHEEBA on CPAP, postinfective bulbous urethral stricture and Restrictive lung disease who presented to the ER on 12/11/2016 with c/o dyspnea, night sweats and chills. Patient had a Electro Uroflowmetry complex, irrigation of bladder and fill and pull with Dr. Thomas on 11/22/16. ER eval revealed cbc significant for wbc 19.2 with 84.6 neutrophils, h/h 12.6/37.5. d-dimer 0.98. BUN/Cr 25/1.28, lactic acid 1.4. CT of the chest negative for PE. CT of abdomen/pelvis showed cystitis and pyelonephritis. previously on bactrim outpatient. Dr. farley notified of admission and recommend iv rocephin and elliott catheter. Last echo 05/16/13 show ef 65-70% with borderline LVH, RV mildly dilated, diastolic dysfunction and trace TR. Patient to be admitted for pyelonephritis and dyspnea. His urine culture grew E.Coli. His WBC trneded down and he has bee afebrile for the last 24 -[address] Miles saw the patient today and recommended taking the elliott out. He wanted him to try Levaquin and see if he will have a reaction as he is allergic to Cipro. If no reaction , will discharge him on levaquin 500 mg PO qd x 10 days. ADDENDUM: He did not have a reaction with Levaquin. Procedures Performed: none Discharge Disposition: Home self care Disposition: Home self-care Condition: Good Discharge Activity: Activity as tolerated Discharge Diet: Low salt Referrals: Ryan Fontanez MD [Primary Care Provider] - Problem Oriented Discharge Instructions to Patient/Family: Pyelonephritis, Adult, [id number] Additional Patient Instructions (free text): Please make TCM appointment, at discharge, if applicable. Thank you! Rupinder @ [phone]. Follow up with PCP in 1 week with on 12-20-16 @ 11:15am. Prescriptions (Any new or edited meds): Acetaminophen [Tylenol] 650 mg PO Q6H PRN #30 tablet PRN Reason: Fever Levofloxacin [Levaquin] 500 mg PO DAILY #10 tablet Complete Home Medications List: Complete Home Medication List: Cetirizine HCl [Zyrtec] 10 mg PO DAILY PRN 11/22/13 Furosemide [Lasix] 40 mg PO DAILY 11/22/13 Gabapentin [Neurontin] 600 mg PO TID 11/22/13 Irbesartan [Avapro] 300 mg PO DAILY 11/22/13 Potassium Chloride [Klor-Con 10] 10 meq PO DAILY 11/22/13 Montelukast Sodium [Singulair] 10 mg PO DAILY 01/20/15 Aspirin 81 mg PO DAILY 04/04/16 Cholecalciferol (Vitamin D3) [Vitamin D3] 5,000 unit PO DAILY 04/04/16 Meloxicam [Mobic] 15 mg PO DAILY 04/04/16 Verapamil HCl [Verapamil ER] 240 mg PO DAILY 04/04/16 Arformoterol Tartrate [Brovana] 15 mcg IH BID 12/11/16 Budesonide [Pulmicort Respules] 2 ml IH BID 12/11/16 Acetaminophen [Tylenol] 650 mg PO Q6H PRN #30 tablet 12/14/16 Levofloxacin [Levaquin] 500 mg PO DAILY #10 tablet 12/14/16
--- NOTE | 2016-12-14 14:08 | CONS ---
HPI - General Narrative: 66-year-old male discovered to have a proximal inflammatory urethral stricture post dilation with indwelling Starr catheter maintained on Bactrim prophylaxis who was admitted for UTI-like symptomatology and not feeling well. White count was elevated. CT scan revealed possible pyelonephritis bilaterally slight delay in excretion/layering on the right but no obstruction. Blood cultures are negative. White count normalized at the initiation of ceftriaxone. Urine culture grew out fairly resistant Escherichia coli susceptible to quinolones. He has recovered nicely remains with indwelling Starr catheter were like to have it removed. Stated ciprofloxacin has caused a rash in the past, he has taken Levaquin without developing any trouble. Creatinine was normal. Location: Systemic/bladder Duration: Days Severity/Stage: Currently mild symptomatology Associated Sx's: Did have fevers/chills and did not feel well Modifying factors: Much better since catheter was placed and antibiotic administration Quality: Currently painless Past medical history: Nondiabetic, includes proximal stricture as mentioned above Past surgical history: Recent balloon dilation and Starr catheter placement last month of proximal inflammatory urethral stricture Social history: Nonsmoker Family history: Noncontributory Review of systems: General: No current fevers or chills, no more myalgias Lungs: No SOB Heart: No chest pain GI: No diarrhea, no constipation Endocrine: Not diabetic : Patient was voiding well prior to incident, no hematuria, he does not care for the catheter 14 point review of systems otherwise negative, important positives noted. - History of Present Illness Allergies/Adverse Reactions: Allergies ciprofloxacin [From Cipro] Allergy (Mild, Verified 12/11/16 16:14) Hives ciprofloxacin HCl [From Cipro] Allergy (Mild, Verified 12/11/16 16:14) Hives hydrocodone bitartrate [From Vicodin] Allergy (Mild, Verified 12/11/16 16:14) Hives oxycodone [Oxycodone] Adverse Reaction (Mild, Verified 12/11/16 16:14) Vomiting Home Medications: Home Medications Medication Instructions Recorded Last Taken Cetirizine HCl [Zyrtec] 10 mg PO DAILY PRN 11/22/13 03/03/15 Furosemide [Lasix] 40 mg PO DAILY 11/22/13 03/03/15 Gabapentin [Neurontin] 600 mg PO TID 11/22/13 03/03/15 Irbesartan [Avapro] 300 mg PO DAILY 11/22/13 03/03/15 Potassium Chloride [Klor-Con 10] 10 meq PO DAILY 11/22/13 03/03/15 Montelukast Sodium [Singulair] 10 mg PO DAILY 01/20/15 03/03/15 Aspirin 81 mg PO DAILY 04/04/16 Unknown Cholecalciferol (Vitamin D3) 5,000 unit PO DAILY 04/04/16 Unknown [Vitamin D3] Meloxicam [Mobic] 15 mg PO DAILY 04/04/16 Unknown Verapamil HCl [Verapamil ER] 240 mg PO DAILY 04/04/16 Unknown Arformoterol Tartrate [Brovana] 15 mcg IH BID 12/11/16 Unknown Budesonide [Pulmicort Respules] 2 ml IH BID 12/11/16 Unknown - Patient's Past Medical History Patient History - Medical: Arthritis, GERD, Obesity, Osteoarthritis Patient History - Cardiac/Respiratory: Asthma, CHF - chronic diastolic Patient History - Cancer: No Hx of Cancer Patient History - Surgical Procedures: Appendectomy, Colonoscopy, Total Knee Replacement, Other, Urology Patient History - Other: None - Family History Mother Family History - Medical: , Diabetes Type 2 Family History - Cardiac/Respiratory: No pertinent hx Family History - Cancer: No pertinent family hx Father Family History - Medical: Family History - Cardiac/Respiratory: Coronary Heart Disease, Myocardial Infarction Family History - Cancer: No pertinent family hx Brother Family History - Medical: Diabetes Type 2 Family History - Cardiac/Respiratory: No pertinent hx Family History - Cancer: No pertinent family hx Sister Family History - Medical: Diabetes Type 2 Family History - Cardiac/Respiratory: No pertinent hx Family History - Cancer: No pertinent family hx - Social History Living Situations: spouse Abuse History: No History of abuse Psych History: No pertinent hx Smoking Status: Never smoker Have you smoked in the past 12 months: No Do you dip or chew tobacco: No Alcohol Use: occasionally Drug Use: none - Immunizations Immunizations Up to Date: Yes Hx Pneumococcal Vaccination: Yes History of Influenza Vaccine: Yes Procedures ANESTH INJECT-SPIN CANAL (03/07/13) APPLICATION OF SPLINT (06/17/08) DIPHTHERIA TOXOID ADMIN (02/12/11) DRAINAGE OF BLADDER WITH DRAINAGE DEVICE, VIA OPENING (12/11/16) ENDO RECTUM POLYPECTOMY (03/24/05) ENDOSC POLYPECTOMY OF LG INTEST (02/12/14) FASCIOTOMY (10/29/01) INJECT STEROID (03/07/13) KNEE STRUCTURE DIVISION (03/01/01) MEASURE OF ARTERIAL SATURATION, PERIPHERAL, PERC APPROACH (01/20/15) OP RED-INT FIX TIB/FIBUL (05/11/01) OTH CHEST CAGE OSTECTOMY (11/28/13) OTHER REPAIR AND PLASTIC OPER OF TIBIA/FIBULA (03/01/01) REMOV INT FIX-TIB/FIBULA (10/29/01) REPLACEMENT OF LEFT KNEE JOINT WITH SYNTH SUB, OPEN APPROACH (03/04/15) ROTATOR CUFF REPAIR (11/28/13) SPINAL CANAL INJECT NEC (03/07/13) TETANUS TOXOID ADMINIST (02/12/11) VENOUS CATHETERIZATION NEC (11/28/09) Medications - Medications Current Medications: Current Medications Acetaminophen (Tylenol) 650 mg PO Q6H PRN PRN Reason: Fever Stop: 01/10/17 15:47 Last Admin: 12/13/16 13:13 Dose: 650 mg Aspirin (Aspirin Chewable) 81 mg PO DAILY ANA MARÍA Stop: 01/11/17 09:01 Last Admin: 12/14/16 08:30 Dose: 81 mg Budesonide (Pulmicort Respules) 0.5 mg IH BIDRT ANA MARÍA Stop: 01/10/17 19:01 Last Admin: 12/14/16 06:15 Dose: 0.5 mg Cefuroxime Axetil (Ceftin) 500 mg PO BID ANA MARÍA PRN Reason: Protocol Stop: 01/13/17 10:01 Last Admin: 12/14/16 10:51 Dose: Not Given Cholecalciferol (Vitamin D) 5,000 unit PO DAILY ANA MARÍA Stop: 01/11/17 09:01 Last Admin: 12/14/16 08:31 Dose: 5,000 unit Enoxaparin Sodium (Lovenox) 40 mg SC Q24H ANA MARÍA Stop: 01/10/17 16:01 Last Admin: 12/13/16 16:55 Dose: 40 mg Formoterol Fumarate (Perforomist) 20 mcg IH BIDRT ANA MARÍA Stop: 01/10/17 19:01 Last Admin: 12/14/16 06:15 Dose: 20 mcg Furosemide (Lasix) 40 mg PO DAILY ANA MARÍA Stop: 01/11/17 09:01 Last Admin: 12/14/16 08:30 Dose: 40 mg Gabapentin (Neurontin) 600 mg PO TID ANA MARÍA Stop: 01/10/17 18:46 Last Admin: 12/14/16 13:15 Dose: 600 mg Famotidine 20 mg/ Dextrose/ (Water) 102 mls @ 400 mls/hr IV Q12H ANA MARÍA Stop: 01/10/17 16:01 Last Admin: 12/14/16 03:13 Dose: 400 mls/hr Losartan Potassium (Cozaar) 100 mg PO DAILY ANA MARÍA Stop: 01/11/17 09:01 Last Admin: 12/14/16 08:30 Dose: 100 mg Meloxicam (Mobic) 15 mg PO DAILY ANA MARÍA Stop: 01/11/17 09:01 Last Admin: 12/14/16 08:31 Dose: 15 mg Montelukast Sodium (Singulair) 10 mg PO HS ANA MARÍA Stop: 01/11/17 21:01 Last Admin: 12/13/16 22:22 Dose: 10 mg Potassium Chloride (Klor-Con 10) 10 meq PO DAILY ANA MARÍA Stop: 01/11/17 09:01 Last Admin: 12/14/16 08:30 Dose: 10 meq Saccharomyces Boulardii (Florastor) 250 mg PO BID ANA MARÍA Stop: 01/11/17 09:01 Last Admin: 12/14/16 08:30 Dose: 250 mg Verapamil HCl (Calan Sr) 240 mg PO DAILY ANA MARÍA Stop: 01/11/17 09:01 Last Admin: 12/14/16 08:30 Dose: 240 mg Physical Examination - Exam Narrative: General: Nontoxic, no acute distress currently Psych: Alert and oriented HEENT: EOM grossly intact Lungs: Respirations unlabored, clear Abdomen: Morbidly obese otherwise benign, no peritoneal signs Neuro: sensation intact Extremities: Moves all 4 without difficulty Heart: Regular Skin: No obvious rashes Back: No CVA tenderness Genital: Starr catheter in place, urine looks pretty clear Vital Signs: Vital Signs - Last Taken Temp 97.5 F L 12/14/16 11:12 Pulse 68 12/14/16 11:12 Resp 18 12/14/16 11:12 BP 168/79 12/14/16 11:12 Pulse Ox 96 12/14/16 11:12 O2 Oxygen Delivery Method Room Air - Results and Findings: Narrative: #1 history of inflammatory urethral stricture: Sounds like Starr catheter when in okay, I think at this point okay to remove. I will follow him closely for recurrence. He was on Bactrim prophylaxis however particular bacteria ended up being resistant. #2 pyelonephritis/febrile UTI: With white count, fever/chills and CT findings I do think he probably did have some pyelonephritis. Fortunately blood cultures were negative. He turn the corner very rapidly. Organisms susceptible to Levaquin. It would be nice to give him a dose of oral Levaquin while he is inpatient make sure he does not react with his Cipro rash history and if not send him home on 10 days of Levaquin 500 mg daily. Starr catheter can be removed, he does need to void before he leaves. He has an appointment to see me December 20 which she will keep. I will choose a different prophylactic agent at that time. Trouble is I do not have a lot of options with a degree of resistance at the current organism has. May consider methenamine hippurate. If has future trouble we'll likely proceed with formal repeat cystoscopy and retrogrades to make sure nothing else going on above. It is possible his stricture had some degree of colonization which led to the trouble that he had. If unable to void we'll need to replace Starr catheter and he can go home with catheter I will see on December 20 anyway. Lab/Microbiology results last 24 hrs: Abnormal/Pending Laboratory Last 24 HRS 12/14/16 07:45 WBC 11.7 H RBC 4.09 L Hgb 11.9 L Hct 35.8 L Immature Gran # (Auto) 0.05 H Lymphocytes % 18.2 L Monocytes % 11.1 H Eosinophils % 3.9 H Neutrophils # 7.7 H Monocytes # 1.3 H
[2016-12-14 14:37] VITALS: BP 165/76
== END 2016-12-14 15:15 | disposition home or self-care (01) | DRG 690 ==
LOC: ER 10:15 → MS 14:48 → OBSVTOIN 12-12 10:24
PROVIDERS: ADMIT Allergy & Immunology; ATTEND Internal Medicine
PROC: 0T9B70Z Drainage of Bladder with Drainage Device, Via Natural or Artificial Opening (ICD-10-PCS; principal; 2016-12-11)
DX: N10 Acute pyelonephritis (principal); Z68.42 Body mass index [BMI] 45.0-49.9, adult; R06.00 Dyspnea, unspecified; N40.1 Benign prostatic hyperplasia with lower urinary tract symptoms; D72.829 Elevated white blood cell count, unspecified; J45.20 Mild intermittent asthma, uncomplicated; I10 Essential (primary) hypertension; K21.9 Gastro-esophageal reflux disease without esophagitis; E66.01 Morbid (severe) obesity due to excess calories; Z23 Encounter for immunization
CPT/HCPCS: 36415; 51702; 71020; 71275; 74177; 80048; 80053; 81001; 83605; 83880; 84145; 85007; 85025; 85379; 87040; 87077; 87086; 87186; 90686; 93005; 94640; 94660; 96365; 99285; G0008; G0378

== ENCOUNTER 2017-04-12 12:43 | Day surgery (SDC) | payer MEDICARE, BC ==
[~2017-04-12 12:43] MED LIST: CEFTRIAXONE SODIUM IV PRN; DEXTROSE 5% IV PRN; NORMAL SALINE 1,000 ML IV PRN; WATER IV PRN
[2017-04-12] MEDS ORDERED: NORMAL SALINE 1,000 ML IV ONE (13:49)
--- NOTE | 2017-04-12 15:41 | OR ---
Operative Report - Dictated Report Narrative: Location: Main OR Anesthesia: General Surgeon: Dr. Gardiner Preoperative diagnosis: Suspected recurrent urethral stricture Postoperative diagnosis: Same, located bulbar urethra, 1 cm long, 5 Beninese, not terribly dense Procedure: #1 retrograde urethrogram #2 cystoscopy with placement of Super Stiff wire, urethral balloon dilation, placement of 22 Ben[place] Councill catheter, aspiration for culture Indications: 66-year-old male history of prior stricture post dilation with suspected recurrence secondary to dysuria and slow flow seen on uroflow. Above- mentioned procedures indicated to confirm diagnosis potentially treat. Of note he has had prior uroseptic episode with catheter. Description: Consent obtained. Patient brought to the operating room where general endotracheal anesthesia was induced. Placed in the dorsal lithotomy position. Prepped and draped. Timeout taken. Retrograde urethrogram obtained and interpreted by Dr. Dr. Thomas. Distal urethra normal caliber no filling defects no evidence of narrowing. In the proximal urethra there is a narrowing more visible on the oblique view that is pretty pinpoint. Looks to be about 1 cm in length. There is good radiographic pictures of the stricture. Contrast did bypass and he flux proximally past prostatic urethra. No extravasation, no other areas of relative narrowing. Rigid cystoscope introduced navigated proximally. Pictures obtained visually of stricture as well. I would have to estimate around 5 Beninese. Super Stiff wire advanced easily without any resistance all the way to the bladder confirmed fluoroscopically. Urethral balloon dilator was used with normal syringe. The stricture dilated easily with minimal pressure on the syringe indicating probably not very dense. Balloon deflated, wire secured. Scope were introduced navigated all the way to the bladder. Aspiration for culture. Capacity increased looks like he wasn't a bit of retention. Not a lot of debris but there was some. There is some obstructive change. Ureters were normal. Prostate medium with mild bilobar hypertrophy. I would say the stricture is 3-4 cm away from the sphincter based on cystoscopic appearance. Specimen: Aspiration for culture EBL: 1 ml Condition: tolerated procedure Important findings: Proximal tight inflammatory urethral stricture. 1 cm long. Not very dense. Bulbar urethra. Follow-up: I will see him in 2 weeks with a flow/BVI. Catheter will come out Monday. Arranging to have done in [place]. I am making an appointment see Dr. Monreal with pictures and retrograde in case this does recur again. Cipro treatment for 5 days. Nitrofurantoin prophylaxis after that in case bacteria part of the issue but truthfully tissue looks a little scarred in that area.
[2017-04-12 17:01] VITALS: BP 145/73
== END 2017-04-12 12:44 | disposition home or self-care (01) ==
LOC: AMB 12:43
PROVIDERS: ATTEND Urology
PROC: 0T7D8ZZ Dilation of Urethra, Via Natural or Artificial Opening Endoscopic (ICD-10-PCS; principal; 2017-04-12)
DX: E66.01 Morbid (severe) obesity due to excess calories; N35.112 Postinfective bulbous urethral stricture, not elsewhere classified, male; Z68.42 Body mass index [BMI] 45.0-49.9, adult; R39.12 Poor urinary stream; K21.9 Gastro-esophageal reflux disease without esophagitis; N40.1 Benign prostatic hyperplasia with lower urinary tract symptoms

== ENCOUNTER 2019-02-25 08:31 | Inpatient (IN) ==
--- NOTE | 2019-02-13 18:48 | ANES ---
Anesthesia Pre Procedure Eval HOME MEDICATIONS Cetirizine HCl [Zyrtec] 10 mg PO DAILY 11/22/13 [Last Taken 03/03/15] Cholecalciferol (Vitamin D3) [Vitamin D3] 5,000 unit PO DAILY 04/04/16 [Last Taken Unknown] Albuterol Sulfate [Albuterol Sulfate 2.5 MG/3 ML] 2.5 mg IH DAILY PRN 04/10/17 [Last Taken Unknown] Albuterol Sulfate [Ventolin HFA] 2 puff IH QID PRN 04/10/17 [Last Taken Unknown] Aspirin [Aspirin Enteric Coated] 81 mg PO DAILY 04/10/17 [Last Taken Unknown] Budesonide [Pulmicort Respules] 2 ml IH BID 04/12/17 [Last Taken Unknown] arformoterol 15 mcg/2 mL solution for nebulization 15 mcg IH Q12H 12/14/17 [Last Taken Unknown] gabapentin 600 mg tablet 600 mg PO TID #270 tab 04/30/18 [Last Taken Unknown] methocarbamol 500 mg tablet 500 mg PO TID #30 tab 10/31/18 [Last Taken Unknown] irbesartan 300 mg tablet 300 mg PO DAILY #30 tab 01/21/19 [Last Taken Unknown] tramadol 50 mg tablet 50 mg PO QID PRN #56 tab 01/25/19 [Last Taken Unknown] craxbwdd-agknbryym-fqnhnnwae 3.5 mg/mL-10,000 unit/mL-1 % ear solution 4 drp OT TID 10 Days #10 ml 02/07/19 [Last Taken Unknown] Diclofenac Sodium [Voltaren] 2 g TOPICAL TID PRN 02/13/19 [Last Taken Unknown] Furosemide [Lasix] 40 mg PO DAILY 02/13/19 [Last Taken Unknown] Montelukast Sodium [Singulair] 10 mg PO DAILY 02/13/19 [Last Taken Unknown] Potassium Chloride [Klor-Con 10] 10 mg PO DAILY 02/13/19 [Last Taken Unknown] Verapamil HCl [Verapamil ER] 240 mg PO DAILY 02/13/19 [Last Taken Unknown] Allergies/Adverse Reactions: Allergies Allergy/AdvReac Type Severity Reaction Status Date / Time ciprofloxacin HCl Allergy Mild Hives Verified 02/06/19 10:58 [From Cipro] hydrocodone bitartrate Allergy Mild Hives Verified 02/06/19 10:58 [From Vicodin] oxycodone [Oxycodone] AdvReac Mild Vomiting Verified 02/06/19 10:58 - Planned Procedure Planned Procedure: Right Arthroplasty Total Knee Medication List Reviewed:: Yes Allergies Verified: Yes Medical History (Last Reviewed 02/13/19 @ 08:37 by Bailey Sullivan RN) DJD (degenerative joint disease) of knee (Chronic) Onset Date: Unknown Knee pain, right (Acute) Onset Date: Unknown Urge incontinence (Chronic) Onset Date: Unknown Plantar fasciitis (Chronic) Onset Date: ~07/06/12 Pes anserinus tendinitis or bursitis (Chronic) Onset Date: ~05/09/11 Peripheral neuropathy (Chronic) Onset Date: ~04/13/12 Obstructive sleep apnea (Chronic) Onset Date: ~04/11/12 Wears cpap Morbid obesity (Chronic) Onset Date: ~07/05/12 D/W diet and exercise. Will redo phentermine. Low back pain (Chronic) Onset Date: ~05/12/99 Hypertension (Chronic) Onset Date: ~12/07/12 Hemorrhoids (Chronic) Onset Date: ~06/16/05 Dr. Simms- Large external hemorrhoid Headache (Chronic) Onset Date: Unknown GERD (gastroesophageal reflux disease) (Chronic) Onset Date: ~04/13/12 Ganglion (Chronic) Onset Date: ~09/17/88 Colon polyp (Chronic) Onset Date: ~02/12/14 hyperplastic Asthma (Chronic) Onset Date: ~01/07/13 mild persistant Actinic keratoses (Chronic) Onset Date: ~09/24/03 06/28/04. Head Surgical History (Last Updated 02/13/19 @ 08:39 by Bailey Sullivan RN) Rotator cuff injury (Resolved) Onset Date: ~11/28/13 Right rotator cuff repair. Dr. Villanueva: subacromial decompression, excision distal clavicle. History of prostate biopsy (Resolved) Onset Date: ~08/03/10 benign Leg fracture, left (Resolved) Onset Date: ~05/12/01 Dr. Mckeon - ORIF left tibia fracture placed plate in left leg. Hardware removal 10/29/01 H/O steroid therapy (Resolved) Onset Date: ~11/10/10 injection H/O echocardiogram (Resolved) Onset Date: ~12/14/09 Normal left ventricular systolic function and wall motion, trace mitral regurg H/O colonoscopy (Resolved) Onset Date: ~03/24/05 With Biopsy; and 02/12/14. Dr Simms - tubular adenoma. hyperplastic polyp. Severe sigmoid diverticulosis. Recheck in 10 years H/O: knee surgery (Resolved) Onset Date: ~03/01/01 arthroscopic, Left. Dr. Mckeon H/O arthroplasty (Resolved) Onset Date: ~03/04/15 Dr. Desir- Left TKA History of appendectomy (Resolved) Onset Date: ~1970 Family History (Last Reviewed 02/13/19 @ 08:38 by Bailey Sullivan RN) Father , age 84 Myocardial infarction Mother , age 63 Diabetes - Family Anesthesia History Family History:: no untoward family reactions to anesthesia, no familial bleeding tendencies, no family history of clotting disorders, no family history of premature - Airway/Neck/Teeth Within Normal Limits:: Yes Denture Type: Perm crown/bridge Mallampatti Score: 1 Thyromental (T-M) distance: > 6 cm Mandibulo Hyoid distance: > 3 cm - Respiratory Smoking Status: Never smoker Discussed smoking cessation including day of surgery: No Sleep Apnea currently treated: Yes - Cardiovascular Tolerate Activity: Good Heart Sounds: S1 & S2, Regular - Anesthesia Assessment and Plan ASA Class: PS, III Anesthesia Type Plan: Block - Right ultrasound guided adductor canal nerve block for postop analgesia, Spinal
[~2019-02-25 08:31] MED LIST changes: -CEFTRIAXONE SODIUM IV PRN; -DEXTROSE 5% IV PRN; +MORPHINE SULFATE 15 MG TABLET.SA PO PRN; -NORMAL SALINE 1,000 ML IV PRN; +ROPIVACAINE HCL/PF 100 MG, EPINEPHrine 0.2 MG, KETOROLAC TROMETHAMINE 30 MG in NORMAL S... IJ PRN; +TRANEXAMIC ACID 1,000 MG in NORMAL SALINE 100 ML IV PRN; -WATER IV PRN; +ceFAZolin SODIUM 1 GM VIAL IV PRN
[2019-02-25] MEDS ORDERED: OSELTAMIVIR PHOSPHATE 75 MG CAPSULE PO SCH (09:00)
[2019-02-25] MEDS ORDERED: LIDOCAINE HCL 20 ML VIAL ONE (09:17)
[2019-02-25] MEDS ORDERED: BUPIVACAINE HCL/EPINEPHRINE 50 ML VIAL IJ ONE (09:17)
[2019-02-25] MEDS ORDERED: NORMAL SALINE 20 ML VIAL ONE (09:18)
[2019-02-25] MEDS ORDERED: BUPIVACAINE HCL/PF 10 ML VIAL ONE (09:18)
[2019-02-25] MEDS ORDERED: MIDAZOLAM HCL/PF 5 MG/ML VIAL ONE (09:18)
[2019-02-25] MEDS ORDERED: PROPOFOL VIAL IV ONE ×3 (09:18→11:25)
[2019-02-25] MEDS: RINGER'S SOLUTION,LACTATED 1,000 ML IV PRN ×3 (09:19→12:10)
[2019-02-25] MEDS ORDERED: MAG HYDROX/ALUMINUM HYD/SIMETH 30 ML UDC PO PRN (12:10)
[2019-02-25] MEDS ORDERED: ZOLPIDEM TARTRATE 5 MG TABLET PO PRN (12:10)
[2019-02-25] MEDS ORDERED: ACETAMINOPHEN 500 MG TABLET PO PRN (12:10)
[2019-02-25] MEDS ORDERED: DEXTROSE 5%-LACTATED RINGERS 1,000 ML IV PRN (12:10)
[2019-02-25] MEDS ORDERED: MAGNESIUM HYDROXIDE 30 ML UDC PO PRN (12:10)
[2019-02-25] MEDS ORDERED: diphenhydrAMINE HCL 50 MG/ML VIAL IV PRN (12:10)
--- NOTE | 2019-02-25 12:10 | OR ---
Operative Report - Dictated Report Narrative: Date: 02/25/2019 Preoperative diagnosis: Right knee degenerative joint disease. Postoperative diagnosis: Right knee degenerative joint disease. Procedure: Right total knee arthroplasty. Surgeon: Js Desir M.D. Tire Design Engineer: Mike Scanlon PA-C (provided and essential set of skilled, educated hands that assisted with transfer, positioning, prepping, draping, manipulation, retraction, placement of jigs, injection, insertion of implants, irrigation, closure wounds, and dressings all of which could not be performed by the available surgical crew) Anesthesia: Spinal with regional block and local periarticular joint injection. Complications: None Specimens: Bone. Estimated blood loss: Minimal. Tourniquet time: 110 Minutes at 325 millimeters of mercury. Retained implants: Depuy Attune size 6 right lugged cemented posterior stabilized femoral component. Size 6 fixed-bearing cemented tibial platform. 6 by 5 millimeter posterior stabilized cross-linked tibial insert. 38 millimeter medialized patella button. Indications: Mr. Lamas is a 68-year-old gentleman who had longstanding right knee pain and arthrosis. This patient was followed in my clinic for period of time with significant complaints of right knee pain consistent with arthritic changes. He had failed conservative measures including, but not limited to, activity modification, passage of time, medications, and other conservative measures. Patient wished to proceed with surgical treatment. The risks, benefits, and alternatives were discussed in clinic. The risks of , blood clots, bleeding, infection, nerve/tendon blood vessel/ injury, malposition of components, intraoperative fracture, postoperative limited range of motion, persistent pain, failure of components, and need for additional procedures. Patient wished to proceed consent was obtained after answering all questions. Procedure: After marking the correct extremity on the floor, the patient was taken to the operating room. A timeout was performed. IV antibiotics consisting of Ancef were administered prior to the procedure. A regional followed by spinal anesthetic was induced by anesthesia, per my request, on the operative table with all bony prominences well-padded. Starr catheter was placed, and a bump was placed under the operative side buttock. SCDs and CRISTAL hose were utilized on the nonoperative leg. A well-padded tourniquet was applied to the operative thigh. The operative leg was then pre-scrubbed with alcohol, prepped, and draped in a standard sterile fashion. After exsanguinating the extremity with an Esmarch bandage, the tourniquet was inflated. After marking out the anterior knee for standard incision centered over the patella, the skin was incised and dissected down to the joint retinaculum. The joint retinaculum was marked out as well as the horizontal axis of the patella, and a standard medial parapatellar arthrotomy was then made. The most proximal aspect of the quadriceps tendon and the patella tendon insertion were protected from release. A partial synovectomy was performed as well as a resection of the infrapatellar fat pad. The distal femoral fat pad proximal to the trochlea was also resected using cautery. The soft tissues were elevated off the medial asp ect of the proximal tibia using a Small elevator ensuring that we did not transect the medial collateral ligament. Upon initial evaluation range of motion was approximately 0 degrees to 125 degrees of flexion. There were signs of advanced arthrosis in the patellofemoral and medial greater than lateral joint spaces. There were large marginal osteophytes which were removed with a rongeur. The knee was hyperflexed and the patella was tucked laterally. Protecting the surrounding soft tissues with Homans, an entry drill was placed down the femoral canal using Whitesides line for guidance into the entry point. The intramedullary femoral alignment phuc was utilized in order to cut the distal femur in 5 degrees of valgus resecting 10 millimeters of bone. Next the distal femur was sized to a size 6. A posterior referencing guide was utilized to place the distal femoral cutting block in 3 degrees of external rotation. This was pinned into place. The rotation was confirmed both visually and based on anatomic landmarks. The 4 in 1 cutting jig of the appropriate size was utilized in order to make all bony cuts. The angle wing was used to ensure no notching. Retractors were utilized in order to protect surrounding soft tissues. This cut did not result in any excessive notching. We then cut the box centered over the distal femur. This allowed for resection of the anterior and posterior cruciate ligaments. I then turned my attention to the preparation of the tibia. Using an extra medullary tibial alignment phuc, 3 millimeters of bone was resected off the medial articular surface. This was made perpendicular to the mechanical axis of the joint with the alignment phuc centered over the ankle mortise. The alignment phuc was checked and was noted to be parallel to the [facility] anical axis, centered over the medial one third of the tibial tubercle, paralleling the anterior surface of the tibia. We then turned our attention to the remaining meniscus and soft tissues. These were removed while protecting the surrounding ligaments and soft tissues. The marginal osteophytes off the anterior, posterior, medial, lateral aspects of the femur and tibia were removed. The tibia was sized out to a size 6. Next the tibia was drilled and punched in an externally rotated position. Next the trial femur and a series of tibial inserts were utilized in order to allow for full extension and maximal flexion. It was found that a 5 millimeter insert gave the best range of motion and stability at multiple flexion points as well as at full extension there was less than 2 mm of gapping both medially and laterally. There is minimal anterior translation with the knee at 90 degrees of flexion and no signs of being able to dislocate the knee. The patella was then prepared. The initial thickness was 20 millimeters. This was reamed down to 11 millimeters parallel to the anterior surface of the patella. It was sized out to a size 38 medialized patella button. This was then drilled and trialed. Without any medial restraint the patella tracked appropriately and did not sublux or dislocate. At this point, it was felt these were the appropriate sized implants, and all trials were removed. The standard periarticular joint injection consisting of ropivacaine, Toradol, and epinephrine were injected into the periarticular joint tissues. The bony surfaces were thoroughly irrigated with a pulsatile-suction saline irrigation device. A bone plug from the prior resected anterior chamfer cut was placed into the drill hole at the distal femur. The bony surfaces were then dried in preparation for placement of the implants. The cement was vacuum mixed per the transportation operations manager's instructions. The cement was placed on the dry bony surfaces and posterior aspect of the implants. The implants were impacted into place, removing all extruded cement. At this point anesthesia administered tranexamic acid per protocol intravenously. The knee was placed in extension with axial loading with the trial insert while the cement cured. Once the cement cured, all remaining extruded cement was removed. The knee was placed through a range of motion with the trial insert to ensure appropriate range of motion and stability. Final range of motion was approximately 0 to 125 degrees. The knee was again thoroughly irrigated with pulsatile saline lavage. The final polyethylene insert was then impacted into place ensuring no retained soft tissues. The remaining periarticular joint injection was injected. A medium Hemovac drain was placed exiting superior laterally. The knee was then placed over a triangle and the arthrotomy was closed with interrupted #1 Vicryl after thoroughly irrigating the joint. The deep and subcutaneous tissues were closed with interrupted 0 and 3-0 Vicryl respectively. Skin was closed with a running subcutaneous 3-0 Monocryl and Prineo Dermabond dressing. 4 x 4's, Sof-Rol, and a full leg Wilfred wrap were applied. All sponge, needle, blade, and instrument counts were correct prior to closing the wounds. Postoperative condition: The patient was awoken and transferred to the postanesthesia care unit in stable condition. Plan is to be admitted to the inpatient medical/surgical floor postoperatively for 24 hours of IV antibiotics, physical therapy, occupational therapy, and medical comanagement. Patient will be weightbearing as tolerated with range of motion as tolerated. DVT prophylaxis will be with SCDs, CRISTAL hose, and pharmacological anticoagulation. Anticipated hospital stay is approximately 1-3 days.
[2019-02-25] MEDS ORDERED: NON-FORMULARY 1 DOSE DOSE (Albuterol Sulfate [Albuterol Sulfate 2.5 Mg/3 Ml] 2.5 MG) IH PRN (12:12)
[2019-02-25] MEDS ORDERED: ALBUTEROL SULFATE 2.5 MG/0.5 ML VIAL.NEB IH PRN (12:12)
--- NOTE | 2019-02-25 12:32 | ANES ---
Post Anesthesia Discharge - Transfer of Care Transfer of Care handoff given to nurse: Yes - Discharge from PACU Discharge from PACU when meets criteria: Yes
--- NOTE | 2019-02-25 12:38 | ANES ---
Anesthesia Procedure Note Procedure Note: ANESTHESIA PROCEDURE NOTE Date of procedure: 02/25/2019. Time of procedure: 50. Performed by: Aaron Carey CRNA Patient Coordinator Front Desk: Any Kahn RN . Preprocedure diagnosis: Right knee DJD. Post procedure diagnosis: Same. Procedure: Ultrasound-guided right adductor canal block Indications: Postoperative analgesia. Findings: Patient brought to operating room #2 and given a spinal anesthetic. Patient's right inner thigh was prepped with ChloraPrep. Ultrasound was utilized to identify the saphenous nerve in the right adductor canal. A 20- gauge 4 inch regional block needle was advanced under ultrasound guidance until tip of needle was placed just anterior to saphenous nerve. 30 mL of 0.25% Marcaine with epinephrine 1 200,000 was injected with adequate spread of local anesthesia noted around the nerve. Regional block needle was removed intact. EBL: Minimal. Fluids: N/A. Specimen: N/A. Post procedure condition: The patient tolerated the procedure well. No complications were noted. Thank you for this consultation Aaron Carey CRNA
[2019-02-25] MEDS: KETOROLAC TROMETHAMINE 15 MG/ML VIAL IV SCH ×2 (13:11→17:14)
--- NOTE | 2019-02-25 13:14 | ANES ---
Post Anesthesia Assessment - Vital Signs Vitals: Last Vital Signs Temp 36.3 C 02/25/19 12:52 Pulse 56 L 02/25/19 12:52 Resp 14 02/25/19 12:52 BP 124/58 02/25/19 12:52 Pulse Ox 99 02/25/19 12:52 Airway Patency: Normal - Mental Status Level Of Consciousness: Awake - Pain Level Pain Score: 0 - N/V Assessment Nausea/Vomiting Presence: None Dehydration:: No
[2019-02-25] MEDS: GABAPENTIN 600 MG TABLET PO SCH ×2 (13:51→17:13)
[2019-02-25] MEDS: METHOCARBAMOL 500 MG TABLET PO SCH ×2 (13:51→17:13)
[2019-02-25] MEDS: OSELTAMIVIR PHOSPHATE 75 MG CAPSULE PO SCH (13:51)
[2019-02-25] MEDS: ceFAZolin SODIUM 1 GM in DEXTROSE 5 % IN WATER 50 ML IV SCH ×4 (14:19→21:07)
[2019-02-25] MEDS: MORPHINE SULFATE 10 MG/0.5 ML SYRINGE PO PRN ×4 (15:10→22:40)
[2019-02-25] MEDS: FORMOTEROL FUMARATE 20 MCG/2 ML VIAL IH SCH (18:25)
[2019-02-25] MEDS: BUDESONIDE 0.5 MG/2 ML VIAL.NEB IH SCH (18:27)
[2019-02-25] MEDS: MORPHINE SULFATE 15 MG TABLET.SA PO SCH (21:06)
[2019-02-25] MEDS: SENNOSIDES/DOCUSATE SODIUM 1 TAB TABLET PO SCH (21:07)
[2019-02-26] MEDS: KETOROLAC TROMETHAMINE 15 MG/ML VIAL IV SCH ×4 (00:38→19:03)
[2019-02-26] MEDS: MORPHINE SULFATE 10 MG/0.5 ML SYRINGE PO PRN ×10 (00:40→22:33)
[2019-02-26] MEDS: ceFAZolin SODIUM 1 GM in DEXTROSE 5 % IN WATER 50 ML IV SCH ×2 (03:23)
[2019-02-26] MEDS: FORMOTEROL FUMARATE 20 MCG/2 ML VIAL IH SCH ×2 (06:01→18:16)
[2019-02-26] MEDS: BUDESONIDE 0.5 MG/2 ML VIAL.NEB IH SCH ×2 (06:02→18:16)
[2019-02-26 06:21] LABS: Hematocrit 37.5 % (42.0-52.0); Hemoglobin 12.6 gm/dL (13.5-18.0); Mean Cell Volume 89.9 fl (78-100); Mean Corpuscular Hemoglobin 30.2 pg (27-31); Mean Corpuscular Hgb Conc 33.6 g/dl (32-36); Platelet Count 287 K/mm3 (150-450); Red Blood Count 4.17 M/mm3 (4.7-6.0); Red Cell Distribution Width 13.7 % (11.5-14.0); White Blood Count 17.3 K/mm3 (4.0-10.5)
[2019-02-26 06:23] LABS: Anion Gap 14.2 mmol/L (6.8-13.8); Carbon Dioxide 24.1 mmol/L (24-32.6); Estimated Creat Clear 62.8; Potassium 4.3 mmol/L (3.4-4.6)
[2019-02-26] MEDS: LOSARTAN POTASSIUM 50 MG TABLET PO SCH (09:20)
[2019-02-26] MEDS: METHOCARBAMOL 500 MG TABLET PO SCH ×3 (09:20→18:03)
[2019-02-26] MEDS: MORPHINE SULFATE 15 MG TABLET.SA PO SCH ×2 (09:20→17:41)
[2019-02-26] MEDS: LORATADINE 10 MG TABLET PO SCH (09:21)
[2019-02-26] MEDS: VERAPAMIL HCL 240 MG TABLET.SA PO SCH (09:21)
[2019-02-26] MEDS: GABAPENTIN 600 MG TABLET PO SCH ×3 (09:21→18:03)
[2019-02-26] MEDS: OSELTAMIVIR PHOSPHATE 75 MG CAPSULE PO SCH (09:21)
[2019-02-26] MEDS: CHOLECALCIFEROL 5,000 UNIT TABLET PO SCH (09:21)
[2019-02-26] MEDS: MONTELUKAST SODIUM 10 MG TABLET PO SCH (09:21)
[2019-02-26] MEDS: FUROSEMIDE 40 MG TABLET PO SCH (09:22)
[2019-02-26] MEDS: POTASSIUM CHLORIDE 10 MEQ TABLET.SA PO SCH (09:22)
[2019-02-26] MEDS: ONDANSETRON HCL/PF 2 MG/ML VIAL IV PRN ×2 (10:12→14:38)
[2019-02-26] MEDS: ENOXAPARIN SODIUM 40 MG/0.4 ML SYRG SC SCH (11:26)
--- NOTE | 2019-02-26 16:52 | PN ---
Subjective - Date and Time Seen Date: 02/26/19 Time: 16:47 Subjective Narrative: Progress note on Rik Lamas. I stop by it 7:45 in the morning postop day 1 patient reports he was in quite a bit of discomfort. He had not gotten up with therapy yet. He stated that he does not remember his left knee being the sore right after surgery. At this time is not having any nausea or vomiting. Had not walked the halls at this time. I did go back and check on Rik at 4:30 in the afternoon he was able to walk to the door in the bathroom a few times but had not been able to walk the halls yet. He states he still feels that he does not have significant pain control. He has started having some nausea and did institute some Zofran for this has not had any vomiting. Objective Objective Narrative: Initially at the morning rounds his bandages were clean dry intact. His drain was intact. Calf supple. He is neurovascular intact with plantar flexion dorsiflexion of the ankle. He was up in a chair reported pain did not appear to be in severe pain. He answered questions appropriately On recheck at 4:30 in the afternoon his dressings have been removed his incisions well approximated his drain is out no active bleeding or drainage noted. Calf supple neurovascular intact with plantar flexion dorsiflexion ankle - Vitals Vitals: Last Vital Signs Temp 37.2 C 02/26/19 14:10 Pulse 66 02/26/19 14:10 Resp 16 02/26/19 14:10 BP 177/83 H 02/26/19 14:10 Pulse Ox 98 02/26/19 14:10 - Abnormal Lab Findings Abnormal Lab Findings: Abnormal Lab Results 02/26/19 02/26/19 Range/Units 06:13 06:13 WBC 17.3 H (4.0-10.5) K/mm3 RBC 4.17 L (4.7-6.0) M/mm3 Hgb 12.6 L (13.5-18.0) gm/dL Hct 37.5 L (42.0-52.0) % Anion Gap 14.2 H (6.8-13.8) mmol/L Random Glucose 119 H (70-110) mg/dL - Exam Constitutional: Present: Alert, Oriented x3, Cooperative, No distress Cauti Physician Documentation - Urinary Catheter Management Urethral (Starr) Date of Insertion: 02/25/19 Time of Insertion: 10:42 Date of Removal: 02/26/19 Time of Removal: 05:20 Assessment/Plan - Problems/Diagnosis (1) Status post total right knee replacement Problem: Acute Narrative: Patient has had poor pain tolerance at this point time. He has been slow to progress with physical therapy. I did modify his MS Contin to 15 mg every 8 hours. If this continues to be inadequate we can bump him up to a 30 mg dose. He is getting Zofran for the nausea. He will continue with physical therapy and hopefully get into the halls tomorrow and work on stairs. At this time he is not stable for discharge. (2) Acute blood loss anemia Problem: Acute Narrative: Patient's hemoglobin is 12.6 down from 13.6 g preoperatively. He is asymptomatic. Will observe for any symptoms at this time. (3) Obstructive sleep apnea Problem: Chronic (4) Morbid obesity Problem: Chronic (5) Hypertension Problem: Chronic (6) Asthma Problem: Chronic
[2019-02-26] MEDS: SENNOSIDES/DOCUSATE SODIUM 1 TAB TABLET PO SCH (20:14)
[2019-02-27] MEDS: MORPHINE SULFATE 15 MG TABLET.SA PO SCH ×3 (00:32→16:09)
[2019-02-27] MEDS: KETOROLAC TROMETHAMINE 15 MG/ML VIAL IV SCH ×2 (00:32→06:21)
[2019-02-27] MEDS: MORPHINE SULFATE 10 MG/0.5 ML SYRINGE PO PRN ×7 (00:33→16:09)
[2019-02-27] MEDS: BUDESONIDE 0.5 MG/2 ML VIAL.NEB IH SCH (05:59)
[2019-02-27] MEDS: FORMOTEROL FUMARATE 20 MCG/2 ML VIAL IH SCH (06:01)
[2019-02-27] MEDS: VERAPAMIL HCL 240 MG TABLET.SA PO SCH (09:33)
[2019-02-27] MEDS: LORATADINE 10 MG TABLET PO SCH (09:34)
[2019-02-27] MEDS: LOSARTAN POTASSIUM 50 MG TABLET PO SCH (09:34)
[2019-02-27] MEDS: GABAPENTIN 600 MG TABLET PO SCH ×2 (09:36→14:01)
[2019-02-27] MEDS: FUROSEMIDE 40 MG TABLET PO SCH (09:36)
[2019-02-27] MEDS: POTASSIUM CHLORIDE 10 MEQ TABLET.SA PO SCH (09:36)
[2019-02-27] MEDS: METHOCARBAMOL 500 MG TABLET PO SCH ×2 (09:37→14:01)
[2019-02-27] MEDS: MONTELUKAST SODIUM 10 MG TABLET PO SCH (09:37)
[2019-02-27] MEDS: CHOLECALCIFEROL 5,000 UNIT TABLET PO SCH (09:38)
--- NOTE | 2019-02-27 10:55 | DS ---
(1) Status post total right knee replacement Problem: Acute (2) Acute blood loss anemia Problem: Acute (3) Obstructive sleep apnea Problem: Chronic (4) Morbid obesity Problem: Chronic (5) Hypertension Problem: Chronic (6) Asthma Problem: Chronic Date of Discharge:: 02/27/19 Description of Stay: Mr. Lamas was admitted to the floor after undergoing right total knee arthroplasty. Tolerated this well. Was admitted to the floor postoperatively for 24 hours of IV antibiotics, pain control, medical comanagement, and occupational and physical therapy. OT and PT were consulted to assist with activities of daily living and ambulation. Was made weightbearing as tolerated with range of motion as tolerated. Pain was initially controlled with IV regimen. This was transitioned to oral once tolerating a by mouth intake. On post day 1 patient was having pain control issues and was slow to progress with physical therapy. That afternoon his long-acting morphine was increased to 3 times a day. By postop day 2 he noted that this made a significant improvement in his postoperative pain. Was resumed on home diet and medications. Had a Starr catheter inserted and the operating room which was discontinued on postoperative day 1. A drain was placed intraoperatively into the knee which was discontinued on postoperative day 1. Lovenox SCD and CRISTAL hose were utilized for DVT prophylaxis. Vital signs remained stable to the hospital course. Serial labs were obtained which showed a final hemoglobin of 12.1 grams down from 14.4 g preoperatively. BMP was reviewed and was stable. Physical examination throughout the hospital course showed an extremity that had sensation that was intact to light touch, palpable pulses, a benign wound, motor intact to the toes, ankle, and knee. Knee range of motion was approximately 5 degrees to 70 degrees. Once an oral pain regimen was tolerated and physical therapy goals were met, it was felt that they were stable for discharge to home. Instructions: Continue with weightbearing as tolerated and range of motion as tolerated. It is OK to shower on the wound if it is not draining. If you note any drainage or for comfort you can cover with dry gauze and tape. Change every 2-3 days as needed. Continue with physical therapy. Resume home diet. Report any fever over 101.5 Fahrenheit, uncontrolled pain, increased drainage, foul odor of drainage, new or increased calf pain or shortness of breath, or any other significant complaints. A 325mg daily aspirin will be started after finishing anticoagulation if not allergic. Once off of the 325 mg daily aspirin he was instructed to resume his normal 81 mg daily aspirin continue with CRISTAL hose on the operative extremity until instructed otherwise. No driving until instructed otherwise. Follow up in approximately 10-14 days. Procedures Performed: see notes below List Procedures: Status post right total knee replacement Results and Findings: Lab Pending Results 02/26/19 06:13: WBC 17.3 H, RBC 4.17 L, Hgb 12.6 L, Hct 37.5 L, MCV 89.9, MCH 30.2, MCHC 33.6, RDW 13.7, Plt Count 287, MPV 10.0 02/26/19 06:13: Sodium 139, Plasma Sodium 139, Potassium 4.3, Chloride 105, Carbon Dioxide 24.1, Anion Gap 14.2 H, BUN 20, Creatinine 1.05, Est GFR (Non-Af Amer) 75, BUN/Creatinine Ratio 19.0, Random Glucose 119 H, Calcium 8.0 Discharge Location: Home Disposition: Home self-care Condition: Good Discharge Activity: Activity as tolerated, Weight bearing, Other - With wheeled walker Discharge Diet: Low salt, Low fat/chol Referrals: Js Desir MD [Staff Physician] - 03/14/19 10:00 am Problem Oriented Discharge Instructions to Patient/Family: Total Knee Replacement, Care After, [place] Additional Patient Instructions (free text): Outpatient Physical Therapy Scheduled at [facility] on 02-27-19 at 11:00am. Follow-up with Dr. Desir in the office on 03-14-19 at 10:00am. Prescriptions (Any new or edited meds): Enoxaparin Sodium [Lovenox] 40 mg SC Q24H #7 disp.syrin Transmission Status: Pending to [place] Morphine Sulfate 15 mg PO Q6H PRN #28 tab PRN Reason: Pain Transmission Status: Received by [place] Morphine Sulfate [Ms Contin] 15 mg PO Q8H #15 tablet.sa Transmission Status: Received by [place] Sennosides/Docusate Sodium [Senokot-S] 2 tab PO HS #30 tab Transmission Status: Pending to [place], [place] Complete Home Medications List: Complete Home Medication List: Cetirizine HCl [Zyrtec] 10 mg PO DAILY 11/22/13 Cholecalciferol (Vitamin D3) [Vitamin D3] 5,000 unit PO DAILY 04/04/16 Albuterol Sulfate [Albuterol Sulfate 2.5 MG/3 ML] 2.5 mg IH DAILY PRN 04/10/17 Albuterol Sulfate [Ventolin HFA] 2 puff IH QID PRN 04/10/17 Aspirin [Aspirin Enteric Coated] 81 mg PO DAILY 04/10/17 Budesonide [Pulmicort Respules] 2 ml IH BID 04/12/17 arformoterol 15 mcg/2 mL solution for nebulization 15 mcg IH Q12H 12/14/17 gabapentin 600 mg tablet 600 mg PO TID #270 tab 04/30/18 methocarbamol 500 mg tablet 500 mg PO TID #30 tab 10/31/18 irbesartan 300 mg tablet 300 mg PO DAILY #30 tab 01/21/19 Diclofenac Sodium [Voltaren] 2 g TOPICAL TID PRN 02/13/19 Furosemide [Lasix] 40 mg PO DAILY 02/13/19 Montelukast Sodium [Singulair] 10 mg PO DAILY 02/13/19 Potassium Chloride [Klor-Con 10] 10 mg PO DAILY 02/13/19 Verapamil HCl [Verapamil ER] 240 mg PO DAILY 02/13/19 oseltamivir 75 mg capsule 75 mg PO DAILY 7 Days #7 cap 02/20/19 Oseltamivir Phosphate [Tamiflu] 75 mg PO DAILY 02/25/19 Enoxaparin Sodium [Lovenox] 40 mg SC Q24H #7 disp.syrin 02/27/19 Morphine Sulfate 15 mg PO Q6H PRN #28 tab 02/27/19 Morphine Sulfate [Ms Contin] 15 mg PO Q8H #15 tablet.sa 02/27/19 Sennosides/Docusate Sodium [Senokot-S] 2 tab PO HS #30 tab 02/27/19 Amb Orders for Discharge: PT Evaluation and Treatment* Facility: [facility], Location: Rehabilitation Services
[2019-02-27] MEDS: ENOXAPARIN SODIUM 40 MG/0.4 ML SYRG SC SCH (10:58)
[2019-02-27 16:49] VITALS: BP 143/71
== END 2019-02-27 17:20 | disposition home or self-care (01) | DRG 470 ==
LOC: MS 08:31 → EDSTATUS 08:45
PROVIDERS: ADMIT Orthopaedic Surgery; ATTEND Orthopaedic Surgery
DX: J45.30 Mild persistent asthma, uncomplicated; G62.9 Polyneuropathy, unspecified; N39.41 Urge incontinence; K21.9 Gastro-esophageal reflux disease without esophagitis; I10 Essential (primary) hypertension; E66.01 Morbid (severe) obesity due to excess calories; Z68.42 Body mass index [BMI] 45.0-49.9, adult; G47.33 Obstructive sleep apnea (adult) (pediatric); D62 Acute posthemorrhagic anemia; M17.11 Unilateral primary osteoarthritis, right knee
CPT/HCPCS: 36415; 73560; 80048; 85027; 94640; 94660; 97110; 97116; 97161; 97165; 97535; J2405